=== PATIENT | male | born 1970 | race Caucasian/White ===

== ENCOUNTER 2016-02-23 20:59 | Emergency (ER) ==
[2016-02-23] MEDS ORDERED: DILAUDID 1 MG/ML SYRINGE IVP STA (21:04)
[2016-02-23] MEDS ORDERED: SODIUM CHLORIDE 1,000 ML IV STA (21:04)
[2016-02-23] MEDS ORDERED: PHENERGAN 25 MG/ML VIAL 25 MG in SODIUM CHLORIDE 50 ML IV STA (21:04)
[2016-02-23 21:12] VITALS: BP 121/84; TEMP 97.4; BMI 26.9
[2016-02-23 21:22] LABS: BASOPHILS % (AUTO) 1.3 % (0.0-3.0); EOSINOPHILS # (AUTO) 0.1 K/ul (0.0-0.7); EOSINOPHILS % (AUTO) 7.2 % (0.0-7.0); IMMATURE GRANULOCYTE % (AUTO) 0.7 % (0.0-5.0); LYMPHOCYTES # (AUTO) 0.5 K/uL (0.60-3.4); LYMPHOCYTES % (AUTO) 33.3 (10.0-50.0); MEAN CORPUSCULAR HEMOGLOBIN 28.5 pg (27.0-31.0); MEAN CORPUSCULAR HGB CONC 32.4 (31.8-35.4); MEAN CORPUSCULAR VOLUME 88.1 fl (80.0-94.0); MONOCYTES # (AUTO) 0.3 K/uL (0.4-2.0); MONOCYTES % (AUTO) 18.3 (0-10); NEUTROPHILS # (AUTO) 0.6 K/ul (2.0-6.9); NEUTROPHILS % (AUTO) 39.2; PLATELET COUNT 285 10^3/uL (140-440); RED BLOOD COUNT 3.86 10^6/ul (4.70-6.10)
[2016-02-23 21:23] LABS: WHITE BLOOD COUNT 1.53 K/ul (4.2-10.2)
[2016-02-23] MEDS ORDERED: PHENERGAN 25 MG/ML VIAL ONE (21:23)
[2016-02-23 21:27] LABS: ADD URINE MICROSCOPIC NO; BILIRUBIN,URINE Negative (NEGATIVE); KETONES,URINE Negative (NEGATIVE); LEUKOCYTE ESTERASE ,URINE Negative (NEGATIVE); NITRITE,URINE Negative (NEGATIVE); PROTEIN,URINE Negative (NEGATIVE); URINE, BLOOD Negative (NEGATIVE)
[2016-02-23 21:44] LABS: ALANINE AMINOTRANSFERASE 43 U/L (12-78); ALBUMIN 3.6 g/dL (3.4-5.0); ALBUMIN/GLOBULIN RATIO 1.03; ALKALINE PHOSPHATASE 140 U/L (50-136); AMYLASE 87 U/L (25-115); ANION GAP 14.1; ASPARTATE AMINO TRANSFERASE 32 U/L (15-37); BILIRUBIN,TOTAL 0.29 mg/dL (0.00-1.20); BLOOD UREA NITROGEN 12 mg/dL (7-18); BUN/CREATININE RATIO 15.78; CALCIUM 9.3 mg/dL (8.2-10.2); CARBON DIOXIDE 29 mmol/L (21-32); CHLORIDE 99 mmol/L (98-107); CREATINE KINASE 111 U/L; CREATININE 0.76 mg/dL (0.60-1.10); GLUCOSE 256 mg/dL (70-100); LIPASE 81 U/L (8-78); POTASSIUM 4.1 mmol/L (3.5-5.1); SODIUM 138 mmol/L (136-145); TOTAL PROTEIN 7.1 g/dL (6.4-8.2)
--- NOTE | 2016-02-23 21:49 | DI ---
EXAM: Abdomen one-view HISTORY: Post chemotherapy vomiting FINDINGS: Normal bowel gas pattern. No pathologic calcifications. No large free intraperitoneal g as. No abundance of retained colonic stool. Skeleton appears normal. Retrievable inferior vena cava filter in place. IMPRESSION: Negative exam.
--- NOTE | 2016-02-23 22:48 | ED.PDOC ---
General ED Provider: Dr. CAMILA GUILLERMO-ER Chief Complaint: Nausea/Vomiting Stated Complaint: im throwing up Time Seen by Physician: 21:05 Mode of Arrival: Walk-In Information Source: Patient, Family Exam Limitations: No limitations Primary Care Provider: JACK POSADA Nursing and Triage Documentation Reviewed and Agree: Yes GI Complaint Exam - Vomiting/Diarrhea Complaint/Exam Onset/Duration: 24hrs Symptoms Are: Still present Episodes of Vomiting over last 24 Hours: 6 Episodes of Diarrhea Over Last 24 Hours: 5 Initial Severity: Mild Current Severity: Mild Character of Vomiting: Reports: Non-bilious Character of Diarrhea: Reports: Watery Aggravating: Reports: None Alleviating: Reports: None Associated Signs and Symptoms: Denies: Dizziness, Light-headedness, Melena, Hematemesis, Fever, Abdominal pain, Cramping Non-GI Risk Factors: Reports: None Surgical Obstruction Risk Factors: Reports: None Abdominal Findings: Present: None Kussmaul Respirations Present: No Differential Diagnoses: Dehydration Review of Systems - Review Of Systems Constitutional: Reports: No symptoms Eyes: Reports: No symptoms Ears, Nose, Mouth, Throat: Reports: No symptoms Respiratory: Reports: No symptoms Cardiac: Reports: No symptoms GI: Reports: Diarrhea, Nausea, Vomiting : Reports: No symptoms Musculoskeletal: Reports: No symptoms Skin: Reports: No symptoms Neurological: Reports: No symptoms Endocrine: Reports: No symptoms Hematologic/Lymphatic: Reports: No symptoms All Other Systems: Reviewed and Negative Past Medical History - Past Medical History Previously Healthy: No Endocrine: Reports: DM 2 Cardiovascular: Reports: None Respiratory: Reports: None Hematological: Reports: None Gastrointestinal: Reports: GERD Genitourinary: Reports: None Neuro/Psych: Reports: None Musculoskeletal: Reports: Other (LEFT SHOULDER PAIN WITH MOTION) Cancer: Reports: None - Surgical History General Surgical History: Reports: Appendectomy - Family History Family History: Reports: None - Social History Smoking Status: Current some day smoker, Light tobacco smoker Hx Substance Use: No Alcohol Screening: None Lives: With family Physical Exam - Physical Exam Appearance: Well-appearing, No pain distress, Well-nourished Eyes: WILLIAM, EOMI, Conjunctiva clear ENT: Ears normal, Nose normal, Oropharynx normal Neck: Supple Respiratory: Airway patent, Breath sounds clear, Breath sounds equal, Respirations nonlabored Cardiovascular: RRR, Pulses normal, No rub, No murmur GI/: Soft, Nontender, No masses Musculoskeletal: Normal strength, ROM intact, No edema, No calf tenderness Skin: Warm, Dry, Normal color Neurological: Sensation intact Psychiatric: Affect appropriate Interpretation - Radiology Interpretation Radiology Interpretation By: Radiologist Radiology Results: Negative - EKG Interpretation Time of EKG #1: 22:47 Rate: Normal Rhythm: Sinus Ectopy: None Mobile: NL ST Segment: Normal Re-Evaluation - Re-Evaluation Time of Re-Evaluation: 22:47 Status: Improved Vital Signs Stable: Yes Pain Level: 1 Appearance: NAD Lungs: Clear Skin: Warm and Dry Neuro: Alert and Oriented X3 CV: RRR Critical Care Note - Critical Care Note Total Time (mins): 0 Course - Course Hematology/Chemistry: 02/23/16 21:13 02/23/16 21:13 Orders, Labs, Meds: Lab Review 02/23/16 21:13 WBC 1.53 L* RBC 3.86 L Hgb 11.0 L Hct 34.0 L MCV 88.1 MCH 28.5 MCHC 32.4 RDW Coeff of Melanie 16.7 H Plt Count 285 Immature Gran % (Auto) 0.7 Neut % (Auto) 39.2 Lymph % (Auto) 33.3 [place] % (Auto) 18.3 H Eos % (Auto) 7.2 H Baso % (Auto) 1.3 Immature Gran # (Auto) 0.0 Neut # 0.6 L Lymph # 0.5 L [place] # 0.3 L Eos # 0.1 Baso # 0.0 Sodium 138 Potassium 4.1 Chloride 99 Carbon Dioxide 29 Anion Gap 14.1 BUN 12 Creatinine 0.76 Estimated GFR (MDRD) 111.00 BUN/Creatinine Ratio 15.78 Glucose 256 H Calcium 9.3 Total Bilirubin 0.29 AST 32 ALT 43 Alkaline Phosphatase 140 H Total Creatine Kinase 111 Troponin I < 0.0100 Total Protein 7.1 Albumin 3.6 Globulin 3.5 Albumin/Globulin Ratio 1.03 Amylase 87 Lipase 81 H Urine Color Yellow Urine Clarity Clear Urine pH 7.0 Ur Specific [place] 1.020 Urine Protein Negative Urine Glucose (UA) 2+ Urine Ketones Negative Urine Blood Negative Urine Nitrite Negative Urine Bilirubin Negative Urine Urobilinogen 1.0 Ur Leukocyte Esterase Negative Orders Category Date Time Status EKG-(ED ONLY) Stat CARDIO 02/23/16 21:05 Ordered IV [ED IV/MEDIPORT/POWERPORT] .ONCE EMERGENCY 02/23/16 21:04 Active AMYLASE Stat LAB 02/23/16 21:13 Completed CBC W/ AUTO DIFF Stat LAB 02/23/16 21:13 Completed COMPREHENSIVE METABOLIC PANEL Stat LAB 02/23/16 21:13 Completed CREATINE KINASE Stat LAB 02/23/16 21:13 Completed LIPASE Stat LAB 02/23/16 21:13 Completed TROPONIN I Stat LAB 02/23/16 21:13 Completed URINALYSIS C & S IF INDICATED Stat LAB 02/23/16 21:13 Completed 0.9 % Sodium Chloride [Saline Flush] MEDS 02/23/16 21:04 Ordered 1 syr IVF PRN PRN Hydromorphone HCl [Dilaudid 1 mg/ml Syringe] MEDS 02/23/16 21:04 Discontinued 1 mg IVP ONCE STA Promethazine HCl [Phenergan 25 mg/ml Vial] MEDS 02/23/16 21:23 Discontinued 25 mg .ROUTE .STK-MED ONE Promethazine HCl [Phenergan 25 mg/ml Vial] 25 mg MEDS 02/23/16 21:04 Discontinued 0.9 % Sodium Chloride [Sodium Chloride] 50 ml IV ONCE Sodium Chloride 0.9% [Sodium Chloride] 1,000 ml MEDS 02/23/16 21:04 Discontinued IV BOLUS ABDOMEN 1 VIEW Stat RADS 02/23/16 21:03 Completed Medications Generic Name Dose Route Start Last Admin Trade Name Freq PRN Reason Stop Dose Admin Sodium Chloride 1 syr 02/23/16 21:04 Saline Flush IVF PRN PRN To flush IV Discontinued Medications Generic Name Dose Route Start Last Admin Trade Name Freq PRN Reason Stop Dose Admin Hydromorphone HCl 1 mg 02/23/16 21:04 02/23/16 21:36 Dilaudid 1 Mg/Ml Syringe IVP 02/23/16 21:05 1 mg ONCE STA Administration Promethazine HCl 25 mg/ Sodium 51 mls @ 75 mls/hr 02/23/16 21:04 02/23/16 21: 36 Chloride IV 02/23/16 21:44 75 mls/hr ONCE STA Administration Sodium Chloride 1,000 mls @ 1,000 mls/hr 02/23/16 21:04 02/23/16 21:42 Sodium Chloride IV 02/23/16 22:03 1,000 mls/hr BOLUS STA Administration Vital Signs: Temp Pulse Resp BP Pulse Ox 02/23/16 21:02 97.4 F L 100 H 16 121/84 98 Departure - Departure Time of Disposition: 22:47 Disposition: HOME SELF-CARE Discharge Problem: Vomiting Instructions: Acute Nausea and Vomiting (ED) Condition: Good Pt referred to PMD for follow-up: Yes Additional Instructions: f/u with pcp and oncology Allergies/Adverse Reactions: Allergies codeine Allergy (Verified 02/23/16 21:00) sulfamethoxazole [From Bactrim] Allergy (Verified 02/23/16 21:00) trimethoprim [From Bactrim] Allergy (Verified 02/23/16 21:00) aspirin Adverse Reaction (Verified 02/23/16 21:00) states can take a baby aspirin, but a regular one makes him nauseated. tramadol HCl [From Ultram] Adverse Reaction (Verified 02/23/16 21:00) Home Medications: Ambulatory Orders Lisinopril [Zestril] 10 mg PO DAILY 06/08/13 Pioglitazone HCl [Actos] 45 mg PO DAILY 06/08/13 Lansoprazole [Prevacid] 30 mg PO DAILY 06/27/14 Glyburide 5 mg PO BID 09/26/15 Hydrocodone/Acetaminophen [[place] 7.5-325 Tablet] 7.5 - 325 mg PO QID PRN Insulin Glargine,Hum.rec.anlog [Lantus Solostar] 30 unit SQ BEDTIME 09/26/15 Nicotine [Nicoderm Cq] 1 each TD DAILY 09/26/15 Enoxaparin Sodium [Lovenox] 80 mg SQ BID 01/28/16 Pantoprazole Sodium [Protonix] 40 mg PO BIDAC #60 tablet. 02/10/16 Disposition Discussed With: Patient, Family
== END 2016-02-23 22:55 | disposition home or self-care (01) ==
LOC: ED 20:59
DX: R11.2 Nausea with vomiting, unspecified (principal); R19.7 Diarrhea, unspecified; E11.9 Type 2 diabetes mellitus without complications; F17.210 Nicotine dependence, cigarettes, uncomplicated; Z79.899 Other long term (current) drug therapy
CPT/HCPCS: 36415; 80053; 81001; 82150; 82550; 83690; 84484; 85025; 93005; 93010; 96361; 96365; 96375; 99283

== ENCOUNTER 2016-10-15 23:01 | Emergency (ER) | payer OTHER ==
[2016-10-15 23:11] VITALS: BP 132/85; TEMP 98.3; BMI 29.3
[2016-10-15 23:31] LABS: BASOPHILS % (AUTO) 0.7 % (0.0-3.0); EOSINOPHILS % (AUTO) 1.3 % (0.0-7.0); HEMATOCRIT 38.1 % (42.0-52.0); HEMOGLOBIN 13.9 g/dl (14.0-18.0); IMMATURE GRANULOCYTE % (AUTO) 0.3 % (0.0-5.0); LYMPHOCYTES # (AUTO) 0.9 K/uL (0.60-3.4); LYMPHOCYTES % (AUTO) 29.1 (10.0-50.0); MEAN CORPUSCULAR HEMOGLOBIN 30.2 pg (27.0-31.0); MEAN CORPUSCULAR HGB CONC 36.5 (31.8-35.4); MEAN CORPUSCULAR VOLUME 82.6 fl (80.0-94.0); MONOCYTES # (AUTO) 0.4 K/uL (0.4-2.0); NEUTROPHILS # (AUTO) 1.7 K/ul (2.0-6.9); NEUTROPHILS % (AUTO) 55.6; PLATELET COUNT 246 10^3/uL (140-440); RED BLOOD COUNT 4.61 10^6/ul (4.70-6.10); WHITE BLOOD COUNT 2.99 K/ul (4.2-10.2)
[2016-10-15 23:50] LABS: ALBUMIN 4.2 g/dL (3.4-5.0); ALBUMIN/GLOBULIN RATIO 1.35; ANION GAP 15.1; BILIRUBIN,TOTAL 0.42 mg/dL (0.00-1.20); BUN/CREATININE RATIO 19.19; CALCIUM 9.8 mg/dL (8.2-10.2); CREATININE 0.99 mg/dL (0.60-1.10); POTASSIUM 4.1 mmol/L (3.5-5.1); TOTAL PROTEIN 7.3 g/dL (6.4-8.2)
--- NOTE | 2016-10-16 | ED.PDOC ---
General ED Provider: Dr. JAMIL BELLE Chief Complaint: Non-specific Complaint Stated Complaint: Been feeling weak, cramps all over the body. feels dehydrated. patient is been diagnosed with lung cancer and on chemo, last one in august. Time Seen by Physician: 23:58 Mode of Arrival: Walk-In Information Source: Patient, Family Primary Care Provider: JACK POSADA Nursing and Triage Documentation Reviewed and Agree: Yes Neurological Complaint Exam - Weakness Complaint/Exam Onset: Gradual Symptoms Are: Still present Timing: Constant Episodes Lasting: Hours Initial Severity: Moderate Current Severity: Mild Character: Reports: Weak Aggravating: Reports: None Alleviating: Reports: Rest Associated Signs and Symptoms: Reports: Decreased oral intake, Change in diet. Denies: Nausea, Vomiting, Diaphoresis, Tinnitus, Chest pain, Short of air, Palpitations, Unsteady gait, GI blood loss, Visual changes, Change in medication , OTC meds, Loss of balance Related History: Similar episode Cardiac Risk Factors: Reports: None CVA Risk Factors: Reports: None Related Surgical History: Reports: None JVD Present: No Carotid Bruit Present: No Rectal Heme Positive: No Nystagmus Present: No Gag Reflex Present: Yes Meningeal Signs Positive: No Focal Weakness: Present: None Focal Sensory Loss: Present: None Gait: Normal [id number]: Normal Findings Romberg Test Positive: No Differential Diagnoses: Hypovolemia, Metabolic abnormalities Review of Systems - Review Of Systems Constitutional: Reports: No symptoms Eyes: Reports: No symptoms Ears, Nose, Mouth, Throat: Reports: No symptoms Respiratory: Reports: No symptoms Cardiac: Reports: No symptoms GI: Reports: No symptoms : Reports: No symptoms Musculoskeletal: Reports: No symptoms Skin: Reports: No symptoms Neurological: Reports: No symptoms Endocrine: Reports: No symptoms Hematologic/Lymphatic: Reports: No symptoms All Other Systems: Reviewed and Negative Past Medical History - Past Medical History Previously Healthy: No Endocrine: Reports: DM 2 Cardiovascular: Reports: None Respiratory: Reports: None Hematological: Reports: None Gastrointestinal: Reports: GERD Genitourinary: Reports: None Neuro/Psych: Reports: None Musculoskeletal: Reports: Other (LEFT SHOULDER PAIN WITH MOTION) Cancer: Reports: None - Surgical History General Surgical History: Reports: Appendectomy - Family History Family History: Reports: None - Social History Smoking Status: Former smoker Hx Substance Use: Yes (marijuana) Alcohol Screening: Occasionally - Immunizations Tetanus Shot up to Date: Yes Physical Exam - Physical Exam Appearance: Well-appearing, No pain distress, Well-nourished Eyes: WILLIAM, EOMI, Conjunctiva clear ENT: Ears normal, Nose normal, Oropharynx normal Respiratory: Airway patent, Breath sounds clear, Breath sounds equal, Respirations nonlabored Cardiovascular: RRR, Pulses normal, No rub, No murmur GI/: Soft, Nontender, No masses, Bowel sounds normal, No Organomegaly Musculoskeletal: Normal strength, ROM intact, No edema, No calf tenderness Skin: Warm, Dry, Normal color Neurological: Sensation intact, Motor intact, Reflexes intact, Cranial nerves intact, Alert, Oriented Psychiatric: Affect appropriate, Mood appropriate Critical Care Note - Critical Care Note Total Time (mins): 0 Course - Course Hematology/Chemistry: 10/15/16 23:30 10/15/16 23:30 Orders, Labs, Meds: Lab Review 10/15/16 23:30 WBC 2.99 L RBC 4.61 L Hgb 13.9 L Hct 38.1 L MCV 82.6 MCH 30.2 MCHC 36.5 H RDW Coeff of Melanie 14.1 Plt Count 246 Immature Gran % (Auto) 0.3 Neut % (Auto) 55.6 Lymph % (Auto) 29.1 [place] % (Auto) 13.0 H Eos % (Auto) 1.3 Baso % (Auto) 0.7 Immature Gran # (Auto) 0.0 Neut # 1.7 L Lymph # 0.9 [place] # 0.4 Eos # 0.0 Baso # 0.0 Sodium 136 Potassium 4.1 Chloride 100 Carbon Dioxide 25 Anion Gap 15.1 BUN 19 H Creatinine 0.99 Estimated GFR (MDRD) 82.00 BUN/Creatinine Ratio 19.19 Glucose 264 H Calcium 9.8 Total Bilirubin 0.42 AST 28 ALT 33 Alkaline Phosphatase 82 Total Protein 7.3 Albumin 4.2 Globulin 3.1 Albumin/Globulin Ratio 1.35 Orders Category Date Time Status CBC W/ AUTO DIFF Stat LAB 10/15/16 23:30 Completed CMP [COMPREHENSIVE METABOLIC PANEL] Stat LAB 10/15/16 23:30 Completed Insulin NPL/Insulin Lispro [Humalog Mix 75-25] MEDS 10/16/16 00:04 Stat 6 unit SUBCUT ONCE STA Morphine Sulfate [Morphine 2 mg/ml Syringe] MEDS 10/16/16 00:04 Stat 2 mg IM ONCE STA Ondansetron HCl/Pf [Zofran 4 mg/2 ml] MEDS 10/16/16 00:04 Stat 4 mg IM ONCE STA Vital Signs: Temp Pulse Resp BP Pulse Ox 10/15/16 23:04 98.3 F 98 H 20 132/85 97 Departure - Departure Time of Disposition: 00:06 Disposition: HOME SELF-CARE Discharge Problem: Hyperglycemia Instructions: Diabetic Hyperglycemia (ED) Condition: Good Pt referred to PMD for follow-up: Yes Additional Instructions: Increase hydration keep checking blood sugars Allergies/Adverse Reactions: Allergies codeine Allergy (Verified 10/15/16 23:11) sulfamethoxazole [From Bactrim] Allergy (Verified 10/15/16 23:11) trimethoprim [From Bactrim] Allergy (Verified 10/15/16 23:11) aspirin Adverse Reaction (Verified 10/15/16 23:11) states can take a baby aspirin, but a regular one makes him nauseated. tramadol HCl [From Ultram] Adverse Reaction (Verified 10/15/16 23:11) Home Medications: Ambulatory Orders Lisinopril [Zestril] 10 mg PO DAILY 06/08/13 Pioglitazone HCl [Actos] 45 mg PO DAILY 06/08/13 Lansoprazole [Prevacid] 30 mg PO DAILY 06/27/14 Glyburide 10 mg PO DAILY 09/26/15 Insulin Glargine,Hum.rec.anlog [Lantus Solostar] 30 unit SQ BEDTIME PRN Enoxaparin Sodium [Lovenox] 80 mg SQ BID 01/28/16 Potassium 99 mg PO DAILY 10/15/16 Disposition Discussed With: Patient, Family
[2016-10-16] MEDS ORDERED: ZOFRAN 4 MG/2 ML IM STA (00:04)
[2016-10-16] MEDS ORDERED: MORPHINE 2 MG/ML SYRINGE IM STA (00:04)
[2016-10-16] MEDS ORDERED: HUMALOG MIX 75-25 SUBCUT STA (00:04)
[2016-10-16] MEDS ORDERED: HUMALOG SUBCUT STA (00:08)
== END 2016-10-16 00:33 | disposition home or self-care (01) ==
LOC: ED 23:01
DX: E11.65 Type 2 diabetes mellitus with hyperglycemia (principal); R53.1 Weakness; R25.2 Cramp and spasm; C34.90 Malignant neoplasm of unspecified part of unspecified bronchus or lung; Z79.899 Other long term (current) drug therapy
CPT/HCPCS: 36415; 80053; 85025; 96372; 99283

== ENCOUNTER 2016-12-26 20:56 | Emergency (ER) ==
[2016-12-26 20:56] VITALS: BMI 29.7
[2016-12-26 21:03] VITALS: BP 121/83; TEMP 97.3
[2016-12-26] MEDS ORDERED: ZOFRAN 4 MG/2 ML IM STA ×2 (21:09)
[2016-12-26] MEDS ORDERED: MORPHINE 10 MG/ML SYRINGE IM STA (21:11)
--- NOTE | 2016-12-26 21:13 | ED.PDOC ---
General ED Provider: Dr. ULISSES CALDERON Chief Complaint: Headache Stated Complaint: headache Time Seen by Physician: 21:00 Mode of Arrival: Walk-In Information Source: Patient Exam Limitations: No limitations Primary Care Provider: JACK POSADA Nursing and Triage Documentation Reviewed and Agree: Yes (brain mets seen with nursing staff ) Neurological Complaint Exam - Headache Complaint/Exam Onset: Gradual Duration: today Symptoms Are: Still present Timing: Constant Episodes Lasting: Hours Worst Headache Ever: No Initial Severity: Moderate Current Severity: Moderate Location: Diffuse Character: Reports: Throbbing Aggravating: Reports: None Alleviating: Reports: None Associated Signs and Symptoms: Reports: Neck pain Related History: Reports: Similar episode Related Surgical History: Reports: None SAH Risk Factors: Reports: None Meningitis Risk Factors: Reports: None SDH Risk Factors: Reports: Male Temporal Arteritis Risk Factors: Reports: Normal Head CT Within Last 12 Months: No (reports of mets to brain evaluated ) Fundoscopic Exam: Present: Normal Findings Papilledema Present: No Temporal Artery Tenderness: Present: None Sinus Tenderness: Present: None TMJ Tenderness: Present: None Glascow Coma Scale (see protocol): 15 Meningeal Signs Positive: No Pain on Passive Flexion-Positive Kernig's: No ROM Limited In: No Limitiations Focal Weakness: Present: None Focal Sensory Loss: Present: None Gait: Normal Nystagmus Present: No Gag Reflex Present: Yes Babinski Sign: Negative Right, Negative Left Review of Systems - Review Of Systems Constitutional: Reports: No symptoms Eyes: Reports: No symptoms Ears, Nose, Mouth, Throat: Reports: No symptoms Respiratory: Reports: No symptoms Cardiac: Reports: No symptoms GI: Reports: No symptoms : Reports: No symptoms Musculoskeletal: Reports: No symptoms Skin: Reports: No symptoms Neurological: Reports: Headache Endocrine: Reports: No symptoms Hematologic/Lymphatic: Reports: No symptoms All Other Systems: Reviewed and Negative Past Medical History - Past Medical History Previously Healthy: No Endocrine: Reports: DM 2 Cardiovascular: Reports: None Respiratory: Reports: None Hematological: Reports: None Gastrointestinal: Reports: GERD Genitourinary: Reports: None Neuro/Psych: Reports: None Musculoskeletal: Reports: Other (LEFT SHOULDER PAIN WITH MOTION) 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 ) - Surgical History General Surgical History: Reports: Appendectomy - Family History Family History: Reports: None - Social History Smoking Status: Former smoker Hx Substance Use: No (marijuana) Alcohol Screening: Occasionally - Immunizations Tetanus Shot up to Date: Yes Physical Exam - Physical Exam Appearance: Well-appearing, No pain distress, Well-nourished Eyes: WILLIAM, EOMI, Conjunctiva clear ENT: Ears normal, Nose normal, Oropharynx normal Respiratory: Airway patent, Breath sounds clear, Breath sounds equal, Respirations nonlabored Cardiovascular: RRR, Pulses normal, No rub, No murmur GI/: Soft, Nontender, No masses, Bowel sounds normal, No Organomegaly Musculoskeletal: Normal strength, ROM intact, No edema, No calf tenderness Skin: Warm, Dry, Normal color Neurological: Sensation intact, Motor intact, Reflexes intact, Cranial nerves intact, Alert, Oriented Psychiatric: Affect appropriate, Mood appropriate Critical Care Note - Critical Care Note Total Time (mins): 0 Course - Course Orders, Labs, Meds: Orders Category Date Time Status Ondansetron HCl/Pf [Zofran 4 mg/2 ml] MEDS 12/26/16 21:09 Stat 4 mg IM ONCE STA Ondansetron HCl/Pf [Zofran 4 mg/2 ml] MEDS 12/26/16 21:09 Stat 4 mg IM ONCE STA Medications Generic Name Dose Route Start Last Admin Trade Name Freq PRN Reason Stop Dose Admin Ondansetron HCl 4 mg 12/26/16 21:09 Zofran 4 Mg/2 Ml IM 12/26/16 21:10 ONCE STA Ondansetron HCl 4 mg 12/26/16 21:09 Zofran 4 Mg/2 Ml IM 12/26/16 21:10 ONCE STA Vital Signs: Temp Pulse Resp BP Pulse Ox 12/26/16 20:57 97.3 F L 112 H 20 121/83 96 Departure - Departure Time of Disposition: 21:13 Disposition: HOME SELF-CARE Discharge Problem: Headache Instructions: Acute Headache (ED) Condition: Good Pt referred to PMD for follow-up: Yes Additional Instructions: Please call your Family Physician as soon as possible to schedule a follow-up appointment. Allergies/Adverse Reactions: Allergies codeine Allergy (Verified 12/22/16 18:37) sulfamethoxazole [From Bactrim] Allergy (Verified 12/22/16 18:37) trimethoprim [From Bactrim] Allergy (Verified 12/22/16 18:37) aspirin Adverse Reaction (Verified 12/22/16 18:37) states can take a baby aspirin, but a regular one makes him nauseated. tramadol HCl [From [facility]] Adverse Reaction (Verified 12/22/16 18:37) Home Medications: Ambulatory Orders Lisinopril [Zestril] 10 mg PO DAILY 06/08/13 Lansoprazole [Prevacid] 30 mg PO DAILY 06/27/14 Glyburide 10 mg PO DAILY 09/26/15 Insulin Glargine,Hum.rec.anlog [Lantus Solostar] 30 unit SQ BEDTIME PRN Enoxaparin Sodium [Lovenox] 80 mg SQ BID 01/28/16 Potassium 99 mg PO DAILY 10/15/16 Dexamethasone 4 mg PO Q12H #70 tablet 12/18/16 Hydrocodone/Acetaminophen [[place] 10-325 Tablet] 1 each PO Q4HR PRN 12/18/16 Diazepam [Valium] 5 mg PO PRN PRN 12/22/16 Diphenoxylate HCl/Atropine [Lomotil 2.5-0.025 mg Tablet] 1 each PO TID PRN #20 tablet 12/22/16 Folic Acid 1 mg PO DAILY 12/22/16 Lorazepam [Ativan] 1 mg PO TID PRN 12/22/16
== END 2016-12-26 21:26 | disposition home or self-care (01) ==
LOC: ED 20:56
DX: R51 Headache (principal); M54.2 Cervicalgia; C34.90 Malignant neoplasm of unspecified part of unspecified bronchus or lung; C79.31 Secondary malignant neoplasm of brain
CPT/HCPCS: 96372; 99282

== ENCOUNTER 2017-01-19 18:10 | Emergency (ER) ==
[2017-01-19 18:14] VITALS: BP 157/111; TEMP 98.8; BMI 29.5
[2017-01-19] MEDS ORDERED: DILAUDID 2 MG/ML SYRINGE IM STA (18:26)
[2017-01-19] MEDS ORDERED: PHENERGAN 25 MG/ML VIAL IM STA (18:26)
--- NOTE | 2017-01-19 18:30 | ED.PDOC ---
General ED Provider: Dr. CAMILA GUILLERMO-ER Chief Complaint: Headache Stated Complaint: im out of my pain meds--i have brain cancer--i have headache Time Seen by Physician: 18:15 Mode of Arrival: Walk-In Information Source: Patient Exam Limitations: No limitations Primary Care Provider: JACK YUEN Nursing and Triage Documentation Reviewed and Agree: Yes Neurological Complaint Exam - Headache Complaint/Exam Onset: Gradual Duration: several days Symptoms Are: Still present Timing: Constant Episodes Lasting: Hours Worst Headache Ever: No Initial Severity: Mild Current Severity: Moderate Location: Diffuse Character: Reports: Dull, Throbbing, Pressure, Migraine Aggravating: Reports: Bright lights Associated Signs and Symptoms: Denies: Dizziness, Seizure, Nausea, Vomiting, Sinus pressure, Fever, Neck pain, Neck stiffness, Decreased LOC, Visual changes Related History: Reports: Similar episode Meningitis Risk Factors: Reports: None SDH Risk Factors: Reports: Male Temporal Arteritis Risk Factors: Reports: Normal Head CT Within Last 12 Months: Yes Fundoscopic Exam: Present: Normal Findings Papilledema Present: No Temporal Artery Tenderness: Present: None Sinus Tenderness: Present: None TMJ Tenderness: Present: None Glascow Coma Scale (see protocol): 15 Meningeal Signs Positive: No Pain on Passive Flexion-Positive Kernig's: No ROM Limited In: No Limitiations Focal Weakness: Present: None Focal Sensory Loss: Present: None Gait: Normal Nystagmus Present: No Gag Reflex Present: Yes [id number]: Normal Findings Romberg Test Positive: No Babinski Sign: Negative Right Heel to Toe Normal: No Differential Diagnoses: Other Review of Systems - Review Of Systems Constitutional: Reports: No symptoms Eyes: Reports: No symptoms Ears, Nose, Mouth, Throat: Reports: No symptoms Respiratory: Reports: No symptoms Cardiac: Reports: No symptoms GI: Reports: No symptoms : Reports: No symptoms Musculoskeletal: Reports: No symptoms Skin: Reports: No symptoms Neurological: Reports: Headache Endocrine: Reports: No symptoms Hematologic/Lymphatic: Reports: No symptoms All Other Systems: Reviewed and Negative Past Medical History - Past Medical History Previously Healthy: No Endocrine: Reports: DM 2 Cardiovascular: Reports: None Respiratory: Reports: None Hematological: Reports: None Gastrointestinal: Reports: GERD Genitourinary: Reports: None Neuro/Psych: Reports: None Musculoskeletal: Reports: Other (LEFT SHOULDER PAIN WITH MOTION) 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 ) - Surgical History General Surgical History: Reports: Appendectomy - Family History Family History: Reports: None - Social History Smoking Status: Former smoker Hx Substance Use: No (marijuana) Alcohol Screening: Occasionally Lives: With family - Immunizations Tetanus Shot up to Date: No Physical Exam - Physical Exam Appearance: Well-appearing, No pain distress, Well-nourished Pain Distress: Moderate Eyes: WILLIAM, EOMI, Conjunctiva clear ENT: Ears normal Neck: Supple Respiratory: Airway patent Cardiovascular: RRR, Pulses normal, No rub, No murmur GI/: Soft, Nontender, No masses, Bowel sounds normal, No Organomegaly Musculoskeletal: Normal strength, ROM intact, No edema, No calf tenderness Skin: Warm, Dry, Normal color Neurological: Sensation intact, Motor intact, Reflexes intact, Cranial nerves intact, Alert, Oriented Psychiatric: Affect appropriate, Mood appropriate Physician Notification - Case Discussed Physician Notified: dr paulino Time of Notification: 18:32 Critical Care Note - Critical Care Note Total Time (mins): 0 Course - Course Orders, Labs, Meds: Orders Category Date Time Status Hydromorphone HCl/Pf [Dilaudid 2 mg/ml Syringe] MEDS 01/19/17 18:26 Stat 2 mg IM ONCE STA Promethazine HCl [Phenergan 25 mg/ml Vial] MEDS 01/19/17 18:26 Stat 25 mg IM ONCE STA CT HEAD W/O CONTRAST Stat RADS 01/19/17 18:27 Ordered Medications Discontinued Medications Generic Name Dose Route Start Last Admin Trade Name Freq PRN Reason Stop Dose Admin Hydromorphone HCl 2 mg 01/19/17 18:26 Dilaudid 2 Mg/Ml Syringe IM 01/19/17 18:27 ONCE STA Promethazine HCl 25 mg 01/19/17 18:26 Phenergan 25 Mg/Ml Vial IM 01/19/17 18:27 ONCE STA Vital Signs: Temp Pulse Resp BP Pulse Ox 01/19/17 18:11 98.8 F 110 H 20 157/111 H 97 Departure - Departure Time of Disposition: 18:30 Disposition: HOME SELF-CARE Discharge Problem: Headache Instructions: General Headache (ED) Condition: Fair Pt referred to PMD for follow-up: Yes Additional Instructions: percocet 10mg q 4hrs prn pain#10--keep appt wtih dr yuen this week Allergies/Adverse Reactions: Allergies codeine Allergy (Verified 01/19/17 18:15) sulfamethoxazole [From Bactrim] Allergy (Verified 01/19/17 18:15) trimethoprim [From Bactrim] Allergy (Verified 01/19/17 18:15) aspirin Adverse Reaction (Verified 01/19/17 18:15) states can take a baby aspirin, but a regular one makes him nauseated. tramadol HCl [From Ultram] Adverse Reaction (Verified 01/19/17 18:15) Home Medications: Ambulatory Orders Lisinopril [Zestril] 10 mg PO DAILY 06/08/13 Lansoprazole [Prevacid] 30 mg PO DAILY 06/27/14 Glyburide 10 mg PO DAILY 09/26/15 Insulin Glargine,Hum.rec.anlog [Lantus Solostar] 30 unit SQ BEDTIME PRN Enoxaparin Sodium [Lovenox] 80 mg SQ BID 01/28/16 Potassium 99 mg PO DAILY 10/15/16 Dexamethasone 4 mg PO Q12H #70 tablet 12/18/16 Diazepam [Valium] 10 mg PO PRN PRN 12/22/16 Folic Acid 1 mg PO DAILY 12/22/16 Levothyroxine Sodium 50 mcg PO DAILY 01/19/17 Oxycodone-Acetaminophen 10-325 [Percocet 10-325] 10 mg PO DAILY 01/19/17 Disposition Discussed With: Patient, Family
--- NOTE | 2017-01-19 18:51 | CT ---
EXAM: CT head without contrast 01/19/2017. Sagittal and coronal reformatted images obtained HISTORY: Headache COMPARISON: 12/18/2016 FINDINGS: There is no evidence of intracranial hemorrhage. The midline is maintained. There is no h ydrocephalus. Low density within the left parietal lobe has decreased minimally since the prior study. This likely represents persistent vasogenic edema. Correlate clinically for history of metastasis. There is persistent low density involving the right temporal lobe and right frontal lobe. These area s also appear minimally improved. No cerebellar tonsillar ectopia. Evaluation of the calvarium shows no fracture. The mastoid air alberto ls are normally pneumatized. IMPRESSION: 1. No intracranial hemorrhage. 2. Multifocal low density involving the right frontal, right temporal and left parietal lobes. Thes e areas maintain a similar distribution as compared to the prior study and appear minimally improved.
[2017-01-19] MEDS ORDERED: MORPHINE 2 MG/ML SYRINGE IM STA (19:31)
== END 2017-01-19 20:00 | disposition home or self-care (01) ==
LOC: ED 18:10
DX: R51 Headache (principal); C34.90 Malignant neoplasm of unspecified part of unspecified bronchus or lung; C79.31 Secondary malignant neoplasm of brain; Z79.899 Other long term (current) drug therapy
CPT/HCPCS: 96372; 99283

== ENCOUNTER 2017-02-02 18:06 | Emergency (ER) ==
[2017-02-02 18:09] VITALS: BP 104/75; TEMP 98.5; BMI 27.3
[2017-02-02] MEDS ORDERED: DILAUDID 2 MG/ML SYRINGE IM STA (19:06)
[2017-02-02] MEDS ORDERED: PHENERGAN 25 MG/ML VIAL IM STA (19:06)
--- NOTE | 2017-02-02 19:09 | ED.PDOC ---
General ED Provider: Dr. CAMILA GUILLERMO-ER Chief Complaint: Non-specific Complaint Stated Complaint: lety had a headache since this am--no nausea or vomiting Time Seen by Physician: 18:10 Mode of Arrival: Walk-In Information Source: Patient Exam Limitations: No limitations Primary Care Provider: JACK YUEN Nursing and Triage Documentation Reviewed and Agree: Yes Neurological Complaint Exam - Headache Complaint/Exam Onset: Gradual Duration: 8hrs Symptoms Are: Still present Timing: Constant Episodes Lasting: Hours Worst Headache Ever: No Initial Severity: Moderate Current Severity: Moderate Location: Diffuse Character: Reports: Dull, Throbbing, Typical headache Alleviating: Reports: None Associated Signs and Symptoms: Reports: Nausea. Denies: Dizziness, Seizure, Vomiting, Sinus pressure, Fever, Neck pain, Neck stiffness, Decreased LOC, Visual changes Related History: Reports: Similar episode Related Surgical History: Reports: None Normal Head CT Within Last 12 Months: Yes Papilledema Present: No Temporal Artery Tenderness: Present: None Sinus Tenderness: Present: None TMJ Tenderness: Present: None Glascow Coma Scale (see protocol): 15 Meningeal Signs Positive: No Pain on Passive Flexion-Positive Kernig's: No ROM Limited In: No Limitiations Focal Weakness: Present: None Focal Sensory Loss: Present: None Gait: Normal Nystagmus Present: No Gag Reflex Present: Yes [id number]: Normal Findings Romberg Test Positive: No Babinski Sign: Negative Right, Negative Left Heel to Toe Normal: Yes Differential Diagnoses: Other Review of Systems - Review Of Systems Constitutional: Reports: No symptoms Eyes: Reports: No symptoms Ears, Nose, Mouth, Throat: Reports: No symptoms Respiratory: Reports: No symptoms Cardiac: Reports: No symptoms GI: Reports: No symptoms : Reports: No symptoms Musculoskeletal: Reports: No symptoms Skin: Reports: No symptoms Neurological: Reports: Headache Endocrine: Reports: No symptoms Hematologic/Lymphatic: Reports: No symptoms All Other Systems: Reviewed and Negative Past Medical History - Past Medical History Previously Healthy: No Endocrine: Reports: DM 2 Cardiovascular: Reports: None Respiratory: Reports: None Hematological: Reports: None Gastrointestinal: Reports: GERD Genitourinary: Reports: None Neuro/Psych: Reports: None Musculoskeletal: Reports: Other (LEFT SHOULDER PAIN WITH MOTION) 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 ) - Surgical History General Surgical History: Reports: Appendectomy - Family History Family History: Reports: None - Social History Smoking Status: Former smoker Hx Substance Use: No (marijuana) Alcohol Screening: Occasionally Lives: With family Physical Exam - Physical Exam Appearance: Well-appearing, No pain distress, Well-nourished Eyes: WILLIAM ENT: Ears normal, Nose normal, Oropharynx normal Neck: Supple Respiratory: Airway patent Cardiovascular: RRR, Pulses normal, No rub, No murmur GI/: Soft, Nontender, No masses, Bowel sounds normal, No Organomegaly Musculoskeletal: Normal strength Skin: Warm, Dry, Normal color Neurological: Sensation intact, Motor intact, Reflexes intact, Cranial nerves intact, Alert, Oriented Psychiatric: Affect appropriate, Mood appropriate Re-Evaluation - Re-Evaluation Time of Re-Evaluation: 19:30 Critical Care Note - Critical Care Note Total Time (mins): 0 Course - Course Orders, Labs, Meds: Orders Category Date Time Status Hydromorphone HCl/Pf [Dilaudid 2 mg/ml Syringe] MEDS 02/02/17 19:06 Stat 2 mg IM ONCE STA Promethazine HCl [Phenergan 25 mg/ml Vial] MEDS 02/02/17 19:06 Stat 25 mg IM ONCE STA Medications Generic Name Dose Route Start Last Admin Trade Name Freq PRN Reason Stop Dose Admin Hydromorphone HCl 2 mg 02/02/17 19:06 Dilaudid 2 Mg/Ml Syringe IM 02/02/17 19:07 ONCE STA Promethazine HCl 25 mg 02/02/17 19:06 Phenergan 25 Mg/Ml Vial IM 02/02/17 19:07 ONCE STA Vital Signs: Temp Pulse Resp BP Pulse Ox 02/02/17 18:06 98.5 F 116 H 20 104/75 98 Departure - Departure Time of Disposition: 19:09 Disposition: HOME SELF-CARE Discharge Problem: Headache Qualifiers: Headache type: unspecified Headache chronicity pattern: chronic headache Intractability: not intractable Qualified Code(s): R51 - Headache Instructions: General Headache (ED) Condition: Good Pt referred to PMD for follow-up: Yes Additional Instructions: f/u with dr yuen Allergies/Adverse Reactions: Allergies codeine Allergy (Verified 02/02/17 18:09) sulfamethoxazole [From Bactrim] Allergy (Verified 02/02/17 18:09) trimethoprim [From Bactrim] Allergy (Verified 02/02/17 18:09) aspirin Adverse Reaction (Verified 02/02/17 18:09) states can take a baby aspirin, but a regular one makes him nauseated. tramadol HCl [From [facility]] Adverse Reaction (Verified 02/02/17 18:09) Home Medications: Ambulatory Orders Lisinopril [Zestril] 10 mg PO DAILY 06/08/13 Lansoprazole [Prevacid] 30 mg PO DAILY 06/27/14 Glyburide 10 mg PO DAILY 09/26/15 Insulin Glargine,Hum.rec.anlog [Lantus Solostar] 40 unit SQ BEDTIME PRN Enoxaparin Sodium [Lovenox] 80 mg SQ BID 01/28/16 Potassium 99 mg PO DAILY 10/15/16 Diazepam [Valium] 10 mg PO PRN PRN 12/22/16 Folic Acid 1 mg PO DAILY 12/22/16 Levothyroxine Sodium 50 mcg PO DAILY 01/19/17 Oxycodone-Acetaminophen 10-325 [Percocet 10-325] 10 mg PO DAILY 01/19/17 Disposition Discussed With: Patient, Family
== END 2017-02-02 19:16 | disposition home or self-care (01) ==
LOC: ED 18:06
DX: R51 Headache (principal)
CPT/HCPCS: 96372; 99282

== ENCOUNTER 2017-02-15 17:27 | Emergency (ER) ==
[2017-02-15 17:27] VITALS: BMI 27.3
[2017-02-15 17:30] VITALS: BP 107/68; TEMP 98.9
[2017-02-15] MEDS ORDERED: MORPHINE 2 MG/ML SYRINGE IM STA (17:58)
[2017-02-15] MEDS ORDERED: ZOFRAN 4 MG/2 ML IM STA (17:58)
--- NOTE | 2017-02-15 18:36 | ED.PDOC ---
General ED Provider: Dr. ULISSES CALDERON Chief Complaint: Nausea/Vomiting Stated Complaint: N/V/ COUGH S/P CHEMO Time Seen by Physician: 17:45 (SEEN WITH STAFF) Mode of Arrival: Walk-In Information Source: Patient Exam Limitations: No limitations Primary Care Provider: JACK POSADA Nursing and Triage Documentation Reviewed and Agree: Yes Reviewed sepsis parameters & appropriate labs ordered?: Yes System Inflammatory Response Syndrome: Not Applicable Sepsis Protocol: For patient's 13 years and over: Temp is 96.8 and below OR 101 and greater Pulse >90 BPM Resp >20/minute Acutely Altered Mental Status Are patient's symptoms suggestive of a new infection, such as: -Pneumonia -Skin, Soft Tissue -Endocarditis -UTI -Bone, Joint Infection -Implantable Device -Acute Abdominal Infection -Wound Infection -Meningitis -Blood Stream Catheter Infection -Unknown Respiratory Complaint Exam - Respiratory Complaint/Exam Onset/Duration: COUGH [id number] HAD CHEMO 3 DAYS AGO HAS BEEN NAUSEATED Symptoms Are: Resolved Timing: Intermittent Initial Severity: Moderate Current Severity: Mild Location: Chest Character: Reports: Non-productive cough Aggravating: Reports: None Alleviating: Reports: Spontaneous resolution Associated Signs and Symptoms: Denies: Rapid breathing, Dyspnea, Fever, Chills, Chest pain, Pleuritic chest pain, Wheezing, Hemoptysis, Dizziness, Calf pain, Calf swelling, Edema, URI, Nasal congestion, Hoarseness, Sinus discomfort, Vomiting, Sore throat, Weight loss, Decreased oral intake, Increased thirst, Increased appetite, Increased urination Related History: Reports: Similar episode History of Healthcare-Acquired Pneumonia: No Related Surgical History: Reports: None Pulmonary Embolism Risk Factors: Malignancy Pseudomonas Risk Factors: Reports: Chronic Lung Disease Status Asthmaticus Risk Factors: Reports: None Home Oxygen Use: No Recent Stress Test: No Recent Echo/LV Function: No Current Antibiotic Use: No Current Asthma Medication Use: No Respiratory Distress: None Inadequate Respiratory Effort: No Dysphagia Present: No Stridor Present: No JVD Present: No Retractions: Not Present Grunting Respirations: No Kussmaul Respirations: No Differential Diagnoses: Pneumonia, Bronchitis Review of Systems - Review Of Systems Constitutional: Reports: No symptoms Eyes: Reports: No symptoms Ears, Nose, Mouth, Throat: Reports: No symptoms Respiratory: Reports: Cough Cardiac: Reports: No symptoms GI: Reports: No symptoms : Reports: No symptoms Musculoskeletal: Reports: No symptoms Skin: Reports: No symptoms Neurological: Reports: No symptoms Endocrine: Reports: No symptoms Hematologic/Lymphatic: Reports: No symptoms All Other Systems: Reviewed and Negative Past Medical History - Past Medical History Previously Healthy: No Endocrine: Reports: DM 2 Cardiovascular: Reports: None Respiratory: Reports: None Hematological: Reports: None Gastrointestinal: Reports: GERD Genitourinary: Reports: None Neuro/Psych: Reports: None Musculoskeletal: Reports: Other (LEFT SHOULDER PAIN WITH MOTION) 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 ) - Surgical History General Surgical History: Reports: Appendectomy - Family History Family History: Reports: None - Social History Smoking Status: Former smoker Hx Substance Use: No (marijuana) Alcohol Screening: Occasionally - Immunizations Tetanus Shot up to Date: No Physical Exam - Physical Exam Appearance: Ill-appearing Ill-appearing: Mild Pain Distress: Mild Eyes: WILLIAM, EOMI, Conjunctiva clear ENT: Ears normal, Nose normal, Oropharynx normal Respiratory: Rhonchi Cardiovascular: RRR, Pulses normal, No rub, No murmur GI/: Soft, Nontender, No masses, Bowel sounds normal, No Organomegaly Musculoskeletal: Normal strength, ROM intact, No edema, No calf tenderness Skin: Warm, Dry, Normal color Neurological: Sensation intact, Motor intact, Reflexes intact, Cranial nerves intact, Alert, Oriented Psychiatric: Affect appropriate, Mood appropriate Interpretation - Radiology Interpretation Radiology Interpretation By: Radiologist Critical Care Note - Critical Care Note Total Time (mins): 0 Course - Course Hematology/Chemistry: 02/15/17 18:05 Orders, Labs, Meds: Lab Review 02/15/17 18:05 WBC 23.92 H RBC 3.62 L Hgb 11.1 L Hct 32.0 L MCV 88.4 MCH 30.7 MCHC 34.7 RDW Coeff of Melanie 16.1 H Plt Count 243 Immature Gran % (Auto) 6.8 H Neut % (Auto) 88.7 Lymph % (Auto) 2.7 L [place] % (Auto) 1.4 Eos % (Auto) 0.1 Baso % (Auto) 0.3 Immature Gran # (Auto) 1.6 H Neut # 21.2 H Lymph # 0.7 [place] # 0.3 L Eos # 0.0 Baso # 0.1 Orders Category Date Time Status BLOOD CULTURE (ED ONLY) Stat LAB 02/15/17 18:05 Received CBC W/ AUTO DIFF Stat LAB 02/15/17 18:05 Completed COMPREHENSIVE METABOLIC PANEL Stat LAB 02/15/17 18:05 Received MOLECULAR FLU A/B Stat LAB 02/15/17 18:18 Received MOLECULAR GROUP A STREP Stat LAB 02/15/17 18:18 Received Morphine Sulfate [Morphine 2 mg/ml Syringe] MEDS 02/15/17 17:58 Discontinued 4 mg IM ONCE STA Ondansetron HCl/Pf [Zofran 4 mg/2 ml] MEDS 02/15/17 17:58 Discontinued 4 mg IM ONCE STA CHEST, 2 VIEWS PA & LAT Stat RADS 02/15/17 17:57 Taken Medications Discontinued Medications Generic Name Dose Route Start Last Admin Trade Name Freq PRN Reason Stop Dose Admin Morphine Sulfate 4 mg 02/15/17 17:58 02/15/17 18:21 Morphine 2 Mg/Ml Syringe IM 02/15/17 17:59 4 mg ONCE STA Administration Ondansetron HCl 4 mg 02/15/17 17:58 02/15/17 18:21 Zofran 4 Mg/2 Ml IM 02/15/17 17:59 4 mg ONCE STA Administration Vital Signs: Temp Pulse Resp BP Pulse Ox 02/15/17 17:27 98.9 F 145 H 20 107/68 98 Departure - Departure Time of Disposition: 19:00 Disposition: HOME SELF-CARE Discharge Problem: Nausea, Vomiting Instructions: Acute Nausea and Vomiting (ED) Condition: Good Pt referred to PMD for follow-up: Yes Additional Instructions: Please call your Family Physician as soon as possible to schedule a follow-up appointment. Allergies/Adverse Reactions: Allergies codeine Allergy (Verified 02/15/17 17:30) sulfamethoxazole [From Bactrim] Allergy (Verified 02/15/17 17:30) trimethoprim [From Bactrim] Allergy (Verified 02/15/17 17:30) aspirin Adverse Reaction (Verified 02/15/17 17:30) states can take a baby aspirin, but a regular one makes him nauseated. tramadol HCl [From Ultram] Adverse Reaction (Verified 02/15/17 17:30) Home Medications: Ambulatory Orders Lisinopril [Zestril] 10 mg PO DAILY 06/08/13 Lansoprazole [Prevacid] 30 mg PO DAILY 06/27/14 Glyburide 10 mg PO DAILY 09/26/15 Insulin Glargine,Hum.rec.anlog [Lantus Solostar] 40 unit SQ BEDTIME PRN Enoxaparin Sodium [Lovenox] 80 mg SQ BID 01/28/16 Potassium 99 mg PO DAILY 10/15/16 Diazepam [Valium] 10 mg PO PRN PRN 12/22/16 Folic Acid 1 mg PO DAILY 12/22/16 Levothyroxine Sodium 50 mcg PO DAILY 01/19/17 Oxycodone-Acetaminophen 10-325 [Percocet 10-325] 10 mg PO DAILY 01/19/17
--- NOTE | 2017-02-15 18:38 | DI ---
EXAM: PA and lateral views of the chest HISTORY: Cough with history of lung cancer COMPARISON: Chest Xray from 01/21/2009 FINDINGS: There is some scarring in the left mid lung region. There is no mass or effusion or conso lidation. There is a Port-A-Cath in place with the tip overlying the SVC. Cardiac and mediastinal s ilhouettes show no acute abnormality. There is an IVC filter in place and there has been prior cholec ystectomy. No acute osseous or soft tissue abnormalities. IMPRESSION: 1. No active disease. 2. Scarring in the left mid lung.
== END 2017-02-15 18:45 | disposition home or self-care (01) ==
LOC: ED 17:27
DX: R11.2 Nausea with vomiting, unspecified (principal); R05 Cough; C34.90 Malignant neoplasm of unspecified part of unspecified bronchus or lung; C79.31 Secondary malignant neoplasm of brain; Z79.899 Other long term (current) drug therapy
CPT/HCPCS: 36415; 80053; 85025; 87040; 87502; 87651; 96372; 99283

== ENCOUNTER 2017-02-16 00:15 | Emergency (ER) ==
[2017-02-16 00:27] VITALS: BP 113/81; TEMP 98.8; BMI 26.6
[2017-02-16] MEDS ORDERED: SODIUM CHLORIDE 500 ML IV STA (01:02)
[2017-02-16] MEDS ORDERED: ZOFRAN 4 MG/2 ML IVP STA (01:02)
--- NOTE | 2017-02-16 01:05 | ED.PDOC ---
General ED Provider: Dr. JAMIL BELLE Chief Complaint: Nausea/Vomiting Stated Complaint: Came for the nausea vomting, was here early, seen by Dr Coats , for the same reason. Time Seen by Physician: 01:04 Mode of Arrival: Walk-In Information Source: Patient Primary Care Provider: JACK POSADA Nursing and Triage Documentation Reviewed and Agree: Yes Reviewed sepsis parameters & appropriate labs ordered?: Yes Sepsis Protocol: For patient's 13 years and over: Temp is 96.8 and below OR 101 and greater Pulse >90 BPM Resp >20/minute Acutely Altered Mental Status Are patient's symptoms suggestive of a new infection, such as: -Pneumonia -Skin, Soft Tissue -Endocarditis -UTI -Bone, Joint Infection -Implantable Device -Acute Abdominal Infection -Wound Infection -Meningitis -Blood Stream Catheter Infection -Unknown GI Complaint Exam - Vomiting/Diarrhea Complaint/Exam Symptoms Are: Still present Episodes of Vomiting over last 24 Hours: 4 Episodes of Diarrhea Over Last 24 Hours: 0 Initial Severity: Moderate Current Severity: Mild Character of Vomiting: Reports: Non-bilious Character of Diarrhea: Reports: Watery Aggravating: Reports: Food, Liquids, Position, Movement Associated Signs and Symptoms: Reports: Dizziness, Light-headedness. Denies: Melena, Hematemesis, Fever, Abdominal pain, Cramping Related History: Reports: Similar episode Non-GI Risk Factors: Reports: None Surgical Obstruction Risk Factors: Reports: None Related Surgical History: Reports: None Abdominal Findings: Present: None Differential Diagnoses: Dehydration Review of Systems - Review Of Systems Constitutional: Reports: No symptoms Eyes: Reports: No symptoms Ears, Nose, Mouth, Throat: Reports: No symptoms Respiratory: Reports: No symptoms Cardiac: Reports: No symptoms GI: Reports: Nausea, Vomiting : Reports: No symptoms Musculoskeletal: Reports: No symptoms Skin: Reports: No symptoms Neurological: Reports: No symptoms Endocrine: Reports: No symptoms Hematologic/Lymphatic: Reports: No symptoms All Other Systems: Reviewed and Negative Past Medical History - Past Medical History Previously Healthy: No Endocrine: Reports: DM 2 Cardiovascular: Reports: None Respiratory: Reports: None Hematological: Reports: None Gastrointestinal: Reports: GERD Genitourinary: Reports: None Neuro/Psych: Reports: None Musculoskeletal: Reports: Other (LEFT SHOULDER PAIN WITH MOTION) 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 ) - Surgical History General Surgical History: Reports: Appendectomy - Family History Family History: Reports: None - Social History Smoking Status: Former smoker Hx Substance Use: No (marijuana) Alcohol Screening: Occasionally - Immunizations Tetanus Shot up to Date: Yes Physical Exam - Physical Exam Appearance: Ill-appearing Eyes: WILLIAM, EOMI, Conjunctiva clear ENT: Ears normal, Nose normal, Oropharynx normal Respiratory: Airway patent, Breath sounds clear, Breath sounds equal, Respirations nonlabored Cardiovascular: RRR, Pulses normal, No rub, No murmur GI/: Soft, Nontender, No masses, Bowel sounds normal, No Organomegaly Musculoskeletal: Normal strength, ROM intact, No edema, No calf tenderness Skin: Warm, Dry, Normal color Neurological: Sensation intact, Motor intact, Reflexes intact, Cranial nerves intact, Alert, Oriented Psychiatric: Affect appropriate, Mood appropriate Critical Care Note - Critical Care Note Total Time (mins): 0 Course - Course Orders, Labs, Meds: Orders Category Date Time Status ED IV/MEDIPORT/POWERPORT .ONCE EMERGENCY 02/16/17 01:02 Ordered 0.9 % Sodium Chloride [Saline Flush] MEDS 02/16/17 01:02 Ordered 1 syr IVF PRN PRN Ondansetron HCl/Pf [Zofran 4 mg/2 ml] MEDS 02/16/17 01:02 Stat 4 mg IVP ONCE STA SODIUM CHLORIDE 0.9% @ 500 MLS/HR(500ml) MEDS 02/16/17 01:02 Ordered Sodium Chloride 0.9% [Sodium Chloride] 500 ml IV BOLUS Medications Generic Name Dose Route Start Last Admin Trade Name Freq PRN Reason Stop Dose Admin Sodium Chloride 500 mls @ 500 mls/hr 02/16/17 01:02 Sodium Chloride IV 02/16/17 02:01 BOLUS STA Ondansetron HCl 4 mg 02/16/17 01:02 Zofran 4 Mg/2 Ml IVP 02/16/17 01:03 ONCE STA Sodium Chloride 1 syr 02/16/17 01:02 Saline Flush IVF PRN PRN To flush IV Vital Signs: Temp Pulse Resp BP Pulse Ox 02/16/17 00:16 98.8 F 134 H 20 113/81 96 Departure - Departure Time of Disposition: 01:07 Disposition: HOME SELF-CARE Discharge Problem: Vomiting Instructions: Dehydration (ED) Pt referred to PMD for follow-up: Yes Additional Instructions: Increase Hydration soft diet Prescriptions: Ondansetron [Zofran Odt] 4 mg PO Q8H #20 tab.rapdis Allergies/Adverse Reactions: Allergies codeine Allergy (Verified 02/16/17 00:29) NAUSEA/SWELLING sulfamethoxazole [From Bactrim] Allergy (Verified 02/16/17 00:29) Unknown UNKNOWN trimethoprim [From Bactrim] Allergy (Verified 02/16/17 00:29) Unknown UNKNOWN aspirin Adverse Reaction (Verified 02/15/17 17:30) states can take a baby aspirin, but a regular one makes him nauseated. tramadol HCl [From Ultram] Adverse Reaction (Verified 02/16/17 00:29) Vomiting Home Medications: Ambulatory Orders Lisinopril [Zestril] 10 mg PO DAILY 06/08/13 Lansoprazole [Prevacid] 30 mg PO DAILY 06/27/14 Glyburide 10 mg PO DAILY 09/26/15 Insulin Glargine,Hum.rec.anlog [Lantus Solostar] 40 unit SQ BEDTIME 09/26/15 Enoxaparin Sodium [Lovenox] 80 mg SQ BID 01/28/16 Potassium 99 mg PO DAILY 10/15/16 Folic Acid 1 mg PO DAILY 12/22/16 Levothyroxine Sodium 50 mcg PO DAILY 01/19/17 Oxycodone-Acetaminophen 10-325 [Percocet 10-325] 10 mg PO Q4-6H PRN 01/19/17 Ondansetron HCl [Zofran] 4 mg PO Q4H PRN 02/16/17 Ondansetron [Zofran Odt] 4 mg PO Q8H #20 tab.rapdis 02/16/17 Prochlorperazine Maleate [Compazine] 10 mg PO Q8H PRN 02/16/17 Disposition Discussed With: Patient
[2017-02-16] MEDS ORDERED: SODIUM CHLORIDE 1,000 ML IV STA (01:17)
== END 2017-02-16 02:20 | disposition home or self-care (01) ==
LOC: ED 00:15
DX: R11.2 Nausea with vomiting, unspecified (principal); R42 Dizziness and giddiness; E86.0 Dehydration; C34.90 Malignant neoplasm of unspecified part of unspecified bronchus or lung; C79.31 Secondary malignant neoplasm of brain; Z79.899 Other long term (current) drug therapy
CPT/HCPCS: 96361; 96374; 99282

== ENCOUNTER 2017-04-18 22:03 | Emergency (ER) ==
[2017-04-18] MEDS ORDERED: SODIUM CHLORIDE 1,000 ML IV STA (22:17)
[2017-04-18] MEDS ORDERED: DILAUDID 2 MG/ML SYRINGE IVP STA (22:17)
[2017-04-18] MEDS ORDERED: PHENERGAN 25 MG/ML VIAL 25 MG in SODIUM CHLORIDE 50 ML IV STA (22:17)
[2017-04-18] MEDS ORDERED: DILAUDID 1 MG/ML SYRINGE IVP PRN (22:18)
[2017-04-18 22:20] VITALS: BP 108/77; TEMP 99.1; BMI 24.5
--- NOTE | 2017-04-18 22:22 | ED.PDOC ---
General ED Provider: Dr. CAMILA GUILLERMO-ER Chief Complaint: Headache Stated Complaint: lety got a headache due to my chemo--this is the usual headache i have with nausea Time Seen by Physician: 22:20 Mode of Arrival: Walk-In Information Source: Patient Exam Limitations: No limitations Primary Care Provider: JACK POSADA Nursing and Triage Documentation Reviewed and Agree: Yes Reviewed sepsis parameters & appropriate labs ordered?: Yes System Inflammatory Response Syndrome: Not Applicable Sepsis Protocol: For patient's 13 years and over: Temp is 96.8 and below OR 101 and greater Pulse >90 BPM Resp >20/minute Acutely Altered Mental Status Are patient's symptoms suggestive of a new infection, such as: -Pneumonia -Skin, Soft Tissue -Endocarditis -UTI -Bone, Joint Infection -Implantable Device -Acute Abdominal Infection -Wound Infection -Meningitis -Blood Stream Catheter Infection -Unknown Neurological Complaint Exam - Headache Complaint/Exam Onset: Gradual Duration: several hours Symptoms Are: Still present Timing: Constant Episodes Lasting: Hours Worst Headache Ever: No Initial Severity: Moderate Current Severity: Moderate Location: Diffuse Character: Reports: Dull, Throbbing, Pressure Aggravating: Reports: None Alleviating: Reports: None Associated Signs and Symptoms: Reports: Nausea. Denies: Dizziness, Seizure, Vomiting, Sinus pressure, Fever, Neck pain, Neck stiffness, Decreased LOC, Visual changes Related History: Reports: Similar episode Related Surgical History: Reports: None SAH Risk Factors: Reports: None Meningitis Risk Factors: Reports: None SDH Risk Factors: Reports: None Temporal Arteritis Risk Factors: Reports: None Normal Head CT Within Last 12 Months: Yes Fundoscopic Exam: Present: Normal Findings Papilledema Present: No Temporal Artery Tenderness: Present: None Sinus Tenderness: Present: None TMJ Tenderness: Present: None Glascow Coma Scale (see protocol): 15 Meningeal Signs Positive: No Pain on Passive Flexion-Positive Kernig's: No ROM Limited In: No Limitiations Focal Weakness: Present: None Focal Sensory Loss: Present: None Gait: Normal Nystagmus Present: No Gag Reflex Present: No [id number]: Normal Findings Romberg Test Positive: Yes Babinski Sign: Negative Right, Negative Left Heel to Toe Normal: Yes Differential Diagnoses: Other Review of Systems - Review Of Systems Constitutional: Reports: No symptoms Eyes: Reports: No symptoms Ears, Nose, Mouth, Throat: Reports: No symptoms Respiratory: Reports: No symptoms Cardiac: Reports: No symptoms GI: Reports: No symptoms, Nausea, Vomiting : Reports: No symptoms Musculoskeletal: Reports: No symptoms Skin: Reports: No symptoms Neurological: Reports: Headache Endocrine: Reports: No symptoms Hematologic/Lymphatic: Reports: No symptoms All Other Systems: Reviewed and Negative Past Medical History - Past Medical History Previously Healthy: No Endocrine: Reports: DM 2 Cardiovascular: Reports: None Respiratory: Reports: None Hematological: Reports: None Gastrointestinal: Reports: GERD Genitourinary: Reports: None Neuro/Psych: Reports: None Musculoskeletal: Reports: Other (LEFT SHOULDER PAIN WITH MOTION) 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 ) - Surgical History General Surgical History: Reports: Appendectomy - Family History Family History: Reports: None - Social History Smoking Status: Former smoker Hx Substance Use: No (marijuana) Alcohol Screening: Occasionally Physical Exam - Physical Exam Appearance: Well-appearing, No pain distress, Well-nourished Pain Distress: Moderate Eyes: WILLIAM, EOMI, Conjunctiva clear ENT: Ears normal, Nose normal, Oropharynx normal Neck: Supple Respiratory: Airway patent, Breath sounds clear, Breath sounds equal, Respirations nonlabored Cardiovascular: RRR, Pulses normal, No rub, No murmur GI/: Soft, Nontender, No masses, Bowel sounds normal, No Organomegaly Musculoskeletal: Normal strength Skin: Warm, Dry, Normal color Neurological: Sensation intact, Motor intact, Reflexes intact, Cranial nerves intact, Alert, Oriented Psychiatric: Affect appropriate, Mood appropriate Critical Care Note - Critical Care Note Total Time (mins): 0 Course - Course Orders, Labs, Meds: Orders Category Date Time Status ED IV/MEDIPORT/POWERPORT .ONCE EMERGENCY 04/18/17 22:17 Active 0.9 % Sodium Chloride [Saline Flush] MEDS 04/18/17 22:17 Ordered 1 syr IVF PRN PRN Hydromorphone HCl [Dilaudid 1 mg/ml Syringe] MEDS 04/18/17 22:18 Ordered 1 mg IVP Q1-2H PRN Promethazine HCl [Phenergan 25 mg/ml Vial] 25 mg MEDS 04/18/17 22:17 Active 0.9 % Sodium Chloride [Sodium Chloride] 50 ml IV ONCE Sodium Chloride 0.9% [Sodium Chloride] 1,000 ml MEDS 04/18/17 22:17 Active IV BOLUS Medications Generic Name Dose Route Start Last Admin Trade Name Freq PRN Reason Stop Dose Admin Hydromorphone HCl 1 mg 04/18/17 22:18 Dilaudid 1 Mg/Ml Syringe IVP Q1-2H PRN MODERATE PAIN Promethazine HCl 25 mg/ Sodium 51 mls @ 75 mls/hr 04/18/17 22:17 Chloride IV 04/18/17 22:57 ONCE STA Sodium Chloride 1,000 mls @ 1,000 mls/hr 04/18/17 22:17 Sodium Chloride IV 04/18/17 23:16 BOLUS STA Sodium Chloride 1 syr 04/18/17 22:17 Saline Flush IVF PRN PRN To flush IV Departure - Departure Time of Disposition: 22:23 Disposition: HOME SELF-CARE Discharge Problem: Headache Instructions: Acute Headache (ED) Condition: Good Pt referred to PMD for follow-up: Yes IPMP verified?: No Additional Instructions: f/u [facility]/oncologist Allergies/Adverse Reactions: Allergies codeine Allergy (Verified 02/16/17 00:29) NAUSEA/SWELLING sulfamethoxazole [From Bactrim] Allergy (Verified 02/16/17 00:29) Unknown UNKNOWN trimethoprim [From Bactrim] Allergy (Verified 02/16/17 00:29) Unknown UNKNOWN aspirin Adverse Reaction (Verified 02/15/17 17:30) states can take a baby aspirin, but a regular one makes him nauseated. tramadol HCl [From Ultram] Adverse Reaction (Verified 02/16/17 00:29) Vomiting Home Medications: Ambulatory Orders Lisinopril [Zestril] 10 mg PO DAILY 06/08/13 Lansoprazole [Prevacid] 30 mg PO DAILY 06/27/14 Glyburide 10 mg PO DAILY 09/26/15 Insulin Glargine,Hum.rec.anlog [Lantus Solostar] 40 unit SQ BEDTIME 09/26/15 Potassium 99 mg PO DAILY 10/15/16 Folic Acid 1 mg PO DAILY 12/22/16 Levothyroxine Sodium 50 mcg PO DAILY 01/19/17 Oxycodone-Acetaminophen 10-325 [Percocet 10-325] 10 mg PO Q4-6H PRN 01/19/17 Ondansetron [Zofran Odt] 4 mg PO Q8H #20 tab.rapdis 02/16/17 Prochlorperazine Maleate [Compazine] 10 mg PO Q8H PRN 02/16/17 Rivaroxaban [Xarelto] 10 mg PO DAILY 04/18/17 Disposition Discussed With: Patient
[2017-04-18] MEDS ORDERED: PHENERGAN 25 MG/ML VIAL ONE (22:50)
[2017-04-18] MEDS ORDERED: DILAUDID 1 MG/ML SYRINGE ONE (23:18)
== END 2017-04-19 01:00 | disposition home or self-care (01) ==
LOC: ED 22:03
DX: R51 Headache (principal); C34.90 Malignant neoplasm of unspecified part of unspecified bronchus or lung; C79.31 Secondary malignant neoplasm of brain; Z79.899 Other long term (current) drug therapy
CPT/HCPCS: 82962; 96361; 96365; 96375; 99283

== ENCOUNTER 2017-05-06 19:45 | Emergency (ER) ==
[2017-05-06 19:51] VITALS: BP 105/68; TEMP 99.1; BMI 23.6
[2017-05-06] MEDS ORDERED: ZOFRAN 4 MG/2 ML IM STA (20:00)
[2017-05-06] MEDS ORDERED: DILAUDID 1 MG/ML SYRINGE IM STA (20:29)
--- NOTE | 2017-05-06 20:32 | ED.PDOC ---
General ED Provider: Dr. JAMIL BELLE Chief Complaint: Nausea/Vomiting Stated Complaint: Patient had Radiation last week, chemo on friday, ever since he is been hurting in the head, started vomiting since morning. not able to keep anything down. Time Seen by Physician: 20:05 Mode of Arrival: Walk-In Information Source: Patient Primary Care Provider: JACK POSADA Nursing and Triage Documentation Reviewed and Agree: Yes Reviewed sepsis parameters & appropriate labs ordered?: No System Inflammatory Response Syndrome: Not Applicable Sepsis Protocol: For patient's 13 years and over: Temp is 96.8 and below OR 101 and greater Pulse >90 BPM Resp >20/minute Acutely Altered Mental Status Are patient's symptoms suggestive of a new infection, such as: -Pneumonia -Skin, Soft Tissue -Endocarditis -UTI -Bone, Joint Infection -Implantable Device -Acute Abdominal Infection -Wound Infection -Meningitis -Blood Stream Catheter Infection -Unknown GI Complaint Exam - Vomiting/Diarrhea Complaint/Exam Symptoms Are: Resolved Episodes of Vomiting over last 24 Hours: 4 Episodes of Diarrhea Over Last 24 Hours: 2 Initial Severity: Moderate Current Severity: None Character of Vomiting: Reports: Non-bilious Character of Diarrhea: Reports: Watery Aggravating: Reports: Food, Liquids Alleviating: Reports: None Associated Signs and Symptoms: Reports: Light-headedness. Denies: Dizziness, Melena, Hematemesis, Fever, Abdominal pain, Cramping Related History: Reports: Similar episode Non-GI Risk Factors: Reports: None Surgical Obstruction Risk Factors: Reports: None Related Surgical History: Reports: None Abdominal Findings: Present: None Differential Diagnoses: Other (chemo rel;ated nausea vomting) Review of Systems - Review Of Systems Constitutional: Reports: Malaise, Weakness Eyes: Reports: No symptoms Ears, Nose, Mouth, Throat: Reports: No symptoms Respiratory: Reports: No symptoms Cardiac: Reports: No symptoms GI: Reports: Diarrhea, Nausea, Vomiting : Reports: No symptoms Musculoskeletal: Reports: No symptoms Skin: Reports: No symptoms Neurological: Reports: Headache Endocrine: Reports: No symptoms Hematologic/Lymphatic: Reports: No symptoms All Other Systems: Reviewed and Negative Past Medical History - Past Medical History Previously Healthy: No Endocrine: Reports: DM 2 Cardiovascular: Reports: None Respiratory: Reports: None Hematological: Reports: None Gastrointestinal: Reports: GERD Genitourinary: Reports: None Neuro/Psych: Reports: None Musculoskeletal: Reports: Other (LEFT SHOULDER PAIN WITH MOTION) 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 ) - Surgical History General Surgical History: Reports: Appendectomy - Family History Family History: Reports: None - Social History Smoking Status: Former smoker Hx Substance Use: No (marijuana) Alcohol Screening: Occasionally - Immunizations Tetanus Shot up to Date: Yes Physical Exam - Physical Exam Appearance: Ill-appearing, Well-nourished Pain Distress: Moderate (headache) Eyes: WILLIAM, EOMI, Conjunctiva clear ENT: Ears normal, Nose normal, Oropharynx normal Respiratory: Airway patent, Breath sounds clear, Breath sounds equal, Respirations nonlabored Cardiovascular: RRR, Pulses normal, No rub, No murmur GI/: Soft, Nontender, No masses, Bowel sounds normal, No Organomegaly Musculoskeletal: Normal strength, ROM intact, No edema, No calf tenderness Skin: Warm, Dry, Normal color Neurological: Sensation intact, Motor intact, Reflexes intact, Cranial nerves intact, Alert, Oriented Psychiatric: Affect appropriate, Mood appropriate Re-Evaluation - Re-Evaluation Time of Re-Evaluation: 21:26 Status: Improved Critical Care Note - Critical Care Note Total Time (mins): 25 Course - Course Hematology/Chemistry: 05/06/17 20:19 05/06/17 20:19 Orders, Labs, Meds: Lab Review 05/06/17 05/06/17 20:19 20:19 WBC 2.80 L RBC 3.01 L Hgb 9.8 L Hct 28.1 L MCV 93.4 MCH 32.6 H MCHC 34.9 RDW Coeff of Melanie 15.1 H Plt Count 157 Neutrophils % (Manual) 79.0 H Lymphocytes % (Manual) 16.0 Monocytes % (Manual) 3.0 Basophils % (Manual) 2.0 H Anisocytosis Not present Sodium 138 Potassium 3.1 L Chloride 101 Carbon Dioxide 28 Anion Gap 12.1 BUN 8 Creatinine 0.66 Estimated GFR (MDRD) 131.00 BUN/Creatinine Ratio 12.12 Glucose 153 H Calcium 9.2 Total Bilirubin 0.7 AST 19 ALT 14 Alkaline Phosphatase 98 Total Protein 7.0 Albumin 4.0 Globulin 3.0 Albumin/Globulin Ratio 1.33 Orders Category Date Time Status CBC W/ AUTO DIFF Stat LAB 05/06/17 20:19 Completed COMPREHENSIVE METABOLIC PANEL Stat LAB 05/06/17 20:19 Completed MANUAL DIFFERENTIAL Stat LAB 05/06/17 20:19 Completed Hydromorphone HCl [Dilaudid 1 mg/ml Syringe] MEDS 05/06/17 20:29 Discontinued 1 mg IM ONCE STA Ondansetron HCl/Pf [Zofran 4 mg/2 ml] MEDS 05/06/17 20:00 Discontinued 4 mg IM ONCE STA Potassium Chloride [K-Dur] MEDS 05/06/17 21:01 Discontinued 40 meq PO ONCE STA Medications Discontinued Medications Generic Name Dose Route Start Last Admin Trade Name Kashif PRN Reason Stop Dose Admin Hydromorphone HCl 1 mg 05/06/17 20:29 05/06/17 21:02 Dilaudid 1 Mg/Ml Syringe IM 05/06/17 20:30 1 mg ONCE STA Administration Ondansetron HCl 4 mg 05/06/17 20:00 05/06/17 20:09 Zofran 4 Mg/2 Ml IM 05/06/17 20:01 4 mg ONCE STA Administration Potassium Chloride 40 meq 05/06/17 21:01 05/06/17 21:05 K-Dur PO 05/06/17 21:02 40 meq ONCE STA Administration Vital Signs: Temp Pulse Resp BP Pulse Ox 05/06/17 19:46 99.1 F 110 H 16 105/68 98 Departure - Departure Time of Disposition: 20:30 Disposition: HOME SELF-CARE Discharge Problem: Chemotherapy induced nausea and vomiting Instructions: Chemo Induced Nausea and Vomiting (ED) Condition: Stable Pt referred to PMD for follow-up: Yes IPMP verified?: No Additional Instructions: Increase hydration Keep f/u with PMD Allergies/Adverse Reactions: Allergies codeine Allergy (Verified 05/06/17 19:52) NAUSEA/SWELLING sulfamethoxazole [From Bactrim] Allergy (Verified 05/06/17 19:52) Unknown UNKNOWN trimethoprim [From Bactrim] Allergy (Verified 05/06/17 19:52) Unknown UNKNOWN aspirin Adverse Reaction (Verified 05/06/17 19:52) states can take a baby aspirin, but a regular one makes him nauseated. tramadol HCl [From Ultram] Adverse Reaction (Verified 05/06/17 19:52) Vomiting Home Medications: Ambulatory Orders Lisinopril [Zestril] 10 mg PO DAILY 06/08/13 Lansoprazole [Prevacid] 30 mg PO DAILY 06/27/14 Glyburide 10 mg PO DAILY 09/26/15 Insulin Glargine,Hum.rec.anlog [Lantus Solostar] 40 unit SQ BEDTIME 09/26/15 Potassium 99 mg PO DAILY 10/15/16 Folic Acid 1 mg PO DAILY 12/22/16 Levothyroxine Sodium 50 mcg PO DAILY 01/19/17 Oxycodone-Acetaminophen 10-325 [Percocet 10-325] 10 mg PO Q4-6H PRN 01/19/17 Ondansetron [Zofran Odt] 4 mg PO Q8H #20 tab.rapdis 02/16/17 Prochlorperazine Maleate [Compazine] 10 mg PO Q8H PRN 02/16/17 Rivaroxaban [Xarelto] 10 mg PO DAILY 04/18/17 Disposition Discussed With: Patient
[2017-05-06] MEDS ORDERED: K-DUR PO STA (21:01)
== END 2017-05-06 21:26 | disposition home or self-care (01) ==
LOC: ED 19:45
DX: R11.2 Nausea with vomiting, unspecified (principal); T45.1X5A Adverse effect of antineoplastic and immunosuppressive drugs, initial encounter; R51 Headache; C34.90 Malignant neoplasm of unspecified part of unspecified bronchus or lung; C79.31 Secondary malignant neoplasm of brain
CPT/HCPCS: 36415; 80053; 85007; 85025; 96372; 99283

== ENCOUNTER 2017-05-19 22:04 | Emergency (ER) ==
[2017-05-19] MEDS ORDERED: SODIUM CHLORIDE 1,000 ML IV STA (22:14)
[2017-05-19] MEDS ORDERED: DILAUDID 1 MG/ML SYRINGE IVP STA (22:15)
[2017-05-19] MEDS ORDERED: PHENERGAN 25 MG/ML VIAL 25 MG in SODIUM CHLORIDE 50 ML IV STA (22:15)
[2017-05-19 22:18] VITALS: BP 108/77; TEMP 98.4; BMI 24.1
--- NOTE | 2017-05-19 22:18 | ED.PDOC ---
General ED Provider: Dr. CAMILA GUILLERMO-ER Chief Complaint: Nausea/Vomiting Stated Complaint: lety got chemo sickness--lety got nausea, vomiting, diarrhea and murcia Time Seen by Physician: 22:16 Mode of Arrival: Walk-In Information Source: Patient Exam Limitations: No limitations Primary Care Provider: JACK POSADA Nursing and Triage Documentation Reviewed and Agree: Yes Reviewed sepsis parameters & appropriate labs ordered?: Yes System Inflammatory Response Syndrome: Not Applicable Sepsis Protocol: For patient's 13 years and over: Temp is 96.8 and below OR 101 and greater Pulse >90 BPM Resp >20/minute Acutely Altered Mental Status Are patient's symptoms suggestive of a new infection, such as: -Pneumonia -Skin, Soft Tissue -Endocarditis -UTI -Bone, Joint Infection -Implantable Device -Acute Abdominal Infection -Wound Infection -Meningitis -Blood Stream Catheter Infection -Unknown GI Complaint Exam - Vomiting/Diarrhea Complaint/Exam Onset/Duration: a few hours Symptoms Are: Still present Episodes of Vomiting over last 24 Hours: 4 Episodes of Diarrhea Over Last 24 Hours: 6 Initial Severity: Mild Current Severity: Mild Character of Vomiting: Reports: Non-bilious Character of Diarrhea: Reports: Watery Aggravating: Reports: None Alleviating: Reports: None Associated Signs and Symptoms: Denies: Dizziness, Light-headedness, Melena, Hematemesis, Fever, Abdominal pain, Cramping Abdominal Findings: Present: None Differential Diagnoses: Other Review of Systems - Review Of Systems Constitutional: Reports: No symptoms Eyes: Reports: No symptoms Ears, Nose, Mouth, Throat: Reports: No symptoms Respiratory: Reports: No symptoms Cardiac: Reports: No symptoms GI: Reports: Diarrhea, Nausea, Vomiting : Reports: No symptoms Musculoskeletal: Reports: No symptoms Skin: Reports: No symptoms Neurological: Reports: Headache Endocrine: Reports: No symptoms Hematologic/Lymphatic: Reports: No symptoms All Other Systems: Reviewed and Negative Past Medical History - Past Medical History Previously Healthy: No Endocrine: Reports: DM 2 Cardiovascular: Reports: None Respiratory: Reports: None Hematological: Reports: None Gastrointestinal: Reports: GERD Genitourinary: Reports: None Neuro/Psych: Reports: None Musculoskeletal: Reports: Other (LEFT SHOULDER PAIN WITH MOTION) 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 ) - Surgical History General Surgical History: Reports: Appendectomy - Family History Family History: Reports: None - Social History Smoking Status: Former smoker Hx Substance Use: No (marijuana) Alcohol Screening: Occasionally Physical Exam - Physical Exam Appearance: Well-appearing, No pain distress, Well-nourished Pain Distress: Mild Eyes: WILLIAM, EOMI, Conjunctiva clear ENT: Ears normal, Nose normal, Oropharynx normal Neck: Supple Respiratory: Airway patent Cardiovascular: RRR GI/: Soft, Nontender, No masses, Bowel sounds normal, No Organomegaly Musculoskeletal: Normal strength, ROM intact, No edema, No calf tenderness Skin: Warm, Dry, Normal color Neurological: Sensation intact, Motor intact, Reflexes intact, Cranial nerves intact, Alert, Oriented Psychiatric: Affect appropriate, Mood appropriate Re-Evaluation - Re-Evaluation Time of Re-Evaluation: 22:18 Status: Improved Vital Signs Stable: Yes Pain Level: 0 Appearance: NAD Lungs: Clear Skin: Warm and Dry Neuro: Alert and Oriented X3 CV: RRR Critical Care Note - Critical Care Note Total Time (mins): 0 Course - Course Orders, Labs, Meds: Orders Category Date Time Status ED IV/MEDIPORT/POWERPORT .ONCE EMERGENCY 05/19/17 22:14 Ordered 0.9 % Sodium Chloride [Saline Flush] MEDS 05/19/17 22:14 Ordered 1 syr IVF PRN PRN Hydromorphone HCl [Dilaudid 1 mg/ml Syringe] MEDS 05/19/17 22:15 Stat 1 mg IVP ONCE STA Promethazine HCl [Phenergan 25 mg/ml Vial] 25 mg MEDS 05/19/17 22:15 Ordered 0.9 % Sodium Chloride [Sodium Chloride] 50 ml IV ONCE SODIUM CHLORIDE 0.9% @ 1,000 MLS/HR(1,000ml) MEDS 05/19/17 22:14 Ordered Sodium Chloride 0.9% [Sodium Chloride] 1,000 ml IV BOLUS Departure - Departure Time of Disposition: 22:18 Disposition: HOME SELF-CARE Discharge Problem: Chemotherapy induced nausea and vomiting Instructions: Acute Nausea and Vomiting (ED) Condition: Good Pt referred to PMD for follow-up: Yes IPMP verified?: No Additional Instructions: f/u with pcp Allergies/Adverse Reactions: Allergies codeine Allergy (Verified 05/06/17 19:52) NAUSEA/SWELLING sulfamethoxazole [From Bactrim] Allergy (Verified 05/06/17 19:52) Unknown UNKNOWN trimethoprim [From Bactrim] Allergy (Verified 05/06/17 19:52) Unknown UNKNOWN aspirin Adverse Reaction (Verified 05/06/17 19:52) states can take a baby aspirin, but a regular one makes him nauseated. tramadol HCl [From [facility]] Adverse Reaction (Verified 05/06/17 19:52) Vomiting Home Medications: Ambulatory Orders Lisinopril [Zestril] 10 mg PO DAILY 06/08/13 Lansoprazole [Prevacid] 30 mg PO DAILY 06/27/14 Glyburide 10 mg PO DAILY 09/26/15 Insulin Glargine,Hum.rec.anlog [Lantus Solostar] 40 unit SQ BEDTIME 09/26/15 Potassium 99 mg PO DAILY 10/15/16 Folic Acid 1 mg PO DAILY 12/22/16 Levothyroxine Sodium 50 mcg PO DAILY 01/19/17 Oxycodone-Acetaminophen 10-325 [Percocet 10-325] 10 mg PO Q4-6H PRN 01/19/17 Ondansetron [Zofran Odt] 4 mg PO Q8H #20 tab.rapdis 02/16/17 Prochlorperazine Maleate [Compazine] 10 mg PO Q8H PRN 02/16/17 Rivaroxaban [Xarelto] 10 mg PO DAILY 04/18/17 Disposition Discussed With: Patient
[2017-05-19] MEDS ORDERED: PHENERGAN 25 MG/ML VIAL ONE (22:36)
[2017-05-20] MEDS ORDERED: DILAUDID 1 MG/ML SYRINGE IVP STA (00:30)
== END 2017-05-20 00:50 | disposition home or self-care (01) ==
LOC: ED 22:04
DX: R11.2 Nausea with vomiting, unspecified (principal); T45.1X5A Adverse effect of antineoplastic and immunosuppressive drugs, initial encounter; R19.7 Diarrhea, unspecified; R51 Headache; C34.90 Malignant neoplasm of unspecified part of unspecified bronchus or lung; C79.31 Secondary malignant neoplasm of brain
CPT/HCPCS: 96361; 96365; 96375; 96376; 99283

== ENCOUNTER 2017-05-30 21:27 | Emergency (ER) ==
[2017-05-30 21:42] VITALS: BP 118/86; TEMP 98.5; BMI 22.9
[2017-05-30] MEDS ORDERED: SODIUM CHLORIDE 1,000 ML IV STA (22:34)
[2017-05-30] MEDS ORDERED: PHENERGAN 25 MG/ML VIAL 12.5 MG in SODIUM CHLORIDE 50 ML IV STA (22:35)
--- NOTE | 2017-05-30 22:40 | ED.PDOC ---
General ED Provider: Dr. CAMILA GUILLERMO-ER Chief Complaint: Nausea/Vomiting Stated Complaint: im vomiting and having a headache Time Seen by Physician: 21:30 Mode of Arrival: Walk-In Information Source: Patient Exam Limitations: No limitations Primary Care Provider: JACK POSADA Nursing and Triage Documentation Reviewed and Agree: Yes Reviewed sepsis parameters & appropriate labs ordered?: Yes System Inflammatory Response Syndrome: Not Applicable Sepsis Protocol: For patient's 13 years and over: Temp is 96.8 and below OR 101 and greater Pulse >90 BPM Resp >20/minute Acutely Altered Mental Status Are patient's symptoms suggestive of a new infection, such as: -Pneumonia -Skin, Soft Tissue -Endocarditis -UTI -Bone, Joint Infection -Implantable Device -Acute Abdominal Infection -Wound Infection -Meningitis -Blood Stream Catheter Infection -Unknown GI Complaint Exam - Vomiting/Diarrhea Complaint/Exam Onset/Duration: several hours Symptoms Are: Still present Episodes of Vomiting over last 24 Hours: 2 Initial Severity: Mild Current Severity: Moderate Character of Vomiting: Reports: Non-bilious Aggravating: Reports: None Alleviating: Reports: None Associated Signs and Symptoms: Reports: Abdominal pain, Cramping Non-GI Risk Factors: Reports: None Kussmaul Respirations Present: No Differential Diagnoses: Dehydration, Viral Gastroenteritis Review of Systems - Review Of Systems Constitutional: Reports: No symptoms Eyes: Reports: No symptoms Ears, Nose, Mouth, Throat: Reports: No symptoms Respiratory: Reports: No symptoms Cardiac: Reports: No symptoms GI: Reports: Abdominal pain, Nausea, Vomiting : Reports: No symptoms Musculoskeletal: Reports: No symptoms Skin: Reports: No symptoms Neurological: Reports: No symptoms Endocrine: Reports: No symptoms Hematologic/Lymphatic: Reports: No symptoms All Other Systems: Reviewed and Negative Past Medical History - Past Medical History Previously Healthy: No Endocrine: Reports: DM 2 Cardiovascular: Reports: None Respiratory: Reports: None Hematological: Reports: None Gastrointestinal: Reports: GERD Genitourinary: Reports: None Neuro/Psych: Reports: None Musculoskeletal: Reports: Other (LEFT SHOULDER PAIN WITH MOTION) 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 ) - Surgical History General Surgical History: Reports: Appendectomy - Family History Family History: Reports: None - Social History Smoking Status: Former smoker Hx Substance Use: No (marijuana) Alcohol Screening: Occasionally - Immunizations Tetanus Shot up to Date: No Physical Exam - Physical Exam Appearance: Well-appearing, No pain distress, Well-nourished Eyes: WILLIAM ENT: Ears normal Respiratory: Airway patent, Breath sounds clear, Breath sounds equal, Respirations nonlabored Cardiovascular: RRR GI/: Soft, Nontender, No masses, Bowel sounds normal, No Organomegaly Musculoskeletal: Normal strength, ROM intact, No edema, No calf tenderness Skin: Warm, Dry, Normal color Neurological: Sensation intact, Motor intact, Reflexes intact, Cranial nerves intact, Alert, Oriented Psychiatric: Affect appropriate, Mood appropriate Critical Care Note - Critical Care Note Total Time (mins): 0 Course - Course Orders, Labs, Meds: Orders Category Date Time Status IV [ED IV/MEDIPORT/POWERPORT] .ONCE EMERGENCY 05/30/17 22:34 Active 0.9 % Sodium Chloride [Saline Flush] MEDS 05/30/17 22:34 Ordered 1 syr IVF PRN PRN Hydromorphone HCl [Dilaudid 1 mg/ml Syringe] MEDS 05/30/17 22:34 Ordered 1 mg IVP Q1HR PRN Promethazine HCl [Phenergan 25 mg/ml Vial] 12.5 mg MEDS 05/30/17 22:35 Active 0.9 % Sodium Chloride [Sodium Chloride] 50 ml IV ONCE Sodium Chloride 0.9% [Sodium Chloride] 1,000 ml MEDS 05/30/17 22:34 Active IV BOLUS Medications Generic Name Dose Route Start Last Admin Trade Name Freq PRN Reason Stop Dose Admin Hydromorphone HCl 1 mg 05/30/17 22:34 Dilaudid 1 Mg/Ml Syringe IVP Q1HR PRN MODERATE PAIN Promethazine HCl 12.5 mg/ 50.5 mls @ 75 mls/hr 05/30/17 22:35 Sodium Chloride IV 05/30/17 23:15 ONCE STA Sodium Chloride 1,000 mls @ 1,000 mls/hr 05/30/17 22:34 Sodium Chloride IV 05/30/17 23:33 BOLUS STA Sodium Chloride 1 syr 05/30/17 22:34 Saline Flush IVF PRN PRN To flush IV Vital Signs: Temp Pulse Resp BP Pulse Ox 05/30/17 21:28 98.5 F 119 H 20 118/86 98 Departure - Departure Time of Disposition: 22:40 Disposition: HOME SELF-CARE Discharge Problem: Headache Qualifiers: Headache type: unspecified Headache chronicity pattern: acute headache Intractability: not intractable Qualified Code(s): R51 - Headache Vomiting Qualifiers: Vomiting type: unspecified Vomiting Intractability: intractable Nausea presence : with nausea Qualified Code(s): R11.2 - Nausea with vomiting, unspecified Condition: Good Pt referred to PMD for follow-up: Yes IPMP verified?: No Additional Instructions: f/u with pcp Allergies/Adverse Reactions: Allergies codeine Allergy (Verified 05/19/17 22:16) NAUSEA/SWELLING sulfamethoxazole [From Bactrim] Allergy (Verified 05/19/17 22:16) Unknown UNKNOWN trimethoprim [From Bactrim] Allergy (Verified 05/19/17 22:16) Unknown UNKNOWN aspirin Adverse Reaction (Verified 05/19/17 22:16) states can take a baby aspirin, but a regular one makes him nauseated. levothyroxine Adverse Reaction (Verified 05/30/17 21:38) STATES HAD EXTREME WEIGHT LOSS FOR THE 2 DAYS HE TOOK IT . 20 POUNDS IN 2 DAYS tramadol HCl [From Ultram] Adverse Reaction (Verified 05/19/17 22:16) Vomiting Home Medications: Ambulatory Orders Lisinopril [Zestril] 10 mg PO DAILY 06/08/13 Lansoprazole [Prevacid] 30 mg PO DAILY 06/27/14 Glyburide 10 mg PO DAILY 09/26/15 Insulin Glargine,Hum.rec.anlog [Lantus Solostar] 40 unit SQ BEDTIME 09/26/15 Potassium 99 mg PO DAILY 10/15/16 Folic Acid 1 mg PO DAILY 12/22/16 Oxycodone-Acetaminophen 10-325 [Percocet 10-325] 10 mg PO Q4-6H PRN 01/19/17 Prochlorperazine Maleate [Compazine] 10 mg PO Q8H PRN 02/16/17 Rivaroxaban [Xarelto] 10 mg PO DAILY 04/18/17 Ondansetron [Zofran Odt] 4 mg PO Q8H PRN 05/19/17 Promethazine HCl [Phenergan Supp] 12.5 mg RC DIRECTED PRN 05/30/17 Disposition Discussed With: Patient, Family
[2017-05-30] MEDS ORDERED: PHENERGAN 25 MG/ML VIAL ONE (23:16)
[2017-05-30] MEDS ORDERED: DILAUDID 1 MG/ML SYRINGE ONE (23:17)
[2017-05-30] MEDS: DILAUDID 1 MG/ML SYRINGE IVP PRN (23:20)
[2017-05-31] MEDS ORDERED: DILAUDID 1 MG/ML SYRINGE ONE (00:24)
[2017-05-31] MEDS: DILAUDID 1 MG/ML SYRINGE IVP PRN (00:26)
== END 2017-05-31 00:59 | disposition home or self-care (01) ==
LOC: ED 21:27
DX: R51 Headache (principal); R11.2 Nausea with vomiting, unspecified; R10.9 Unspecified abdominal pain; E11.9 Type 2 diabetes mellitus without complications
CPT/HCPCS: 96361; 96365; 96375; 96376; 99282

== ENCOUNTER 2017-06-06 21:40 | Emergency (ER) ==
[2017-06-06 21:45] VITALS: BP 116/70; TEMP 97.2; BMI 23.1
[2017-06-06] MEDS ORDERED: ZOFRAN 4 MG/2 ML IM STA (22:14)
--- NOTE | 2017-06-06 22:17 | ED.PDOC ---
General ED Provider: Dr. JAMIL BELLE Chief Complaint: Headache Stated Complaint: Patient having nausea, no vomiting, says hurting in the head, 10/10 but watching Movie in phone in dark room. not in any discomfort Time Seen by Physician: 22:15 Mode of Arrival: Walk-In Information Source: Patient Primary Care Provider: JACK POSADA Nursing and Triage Documentation Reviewed and Agree: Yes Reviewed sepsis parameters & appropriate labs ordered?: No System Inflammatory Response Syndrome: Not Applicable Sepsis Protocol: For patient's 13 years and over: Temp is 96.8 and below OR 101 and greater Pulse >90 BPM Resp >20/minute Acutely Altered Mental Status Are patient's symptoms suggestive of a new infection, such as: -Pneumonia -Skin, Soft Tissue -Endocarditis -UTI -Bone, Joint Infection -Implantable Device -Acute Abdominal Infection -Wound Infection -Meningitis -Blood Stream Catheter Infection -Unknown GI Complaint Exam - Vomiting/Diarrhea Complaint/Exam Symptoms Are: Resolved Episodes of Vomiting over last 24 Hours: 0 Initial Severity: Moderate Current Severity: Mild Character of Vomiting: Reports: Non-bilious Aggravating: Reports: Liquids Alleviating: Reports: None Related History: Reports: Similar episode Non-GI Risk Factors: Reports: None Surgical Obstruction Risk Factors: Reports: None Related Surgical History: Reports: None Abdominal Findings: Present: None Differential Diagnoses: Other (chemo indused nausea.) Review of Systems - Review Of Systems Constitutional: Reports: No symptoms Eyes: Reports: No symptoms Ears, Nose, Mouth, Throat: Reports: No symptoms Respiratory: Reports: No symptoms Cardiac: Reports: No symptoms GI: Reports: Nausea : Reports: No symptoms Musculoskeletal: Reports: No symptoms Skin: Reports: No symptoms Neurological: Reports: No symptoms Endocrine: Reports: No symptoms Hematologic/Lymphatic: Reports: No symptoms All Other Systems: Reviewed and Negative Past Medical History - Past Medical History Previously Healthy: No Endocrine: Reports: DM 2 Cardiovascular: Reports: None Respiratory: Reports: None Hematological: Reports: None Gastrointestinal: Reports: GERD Genitourinary: Reports: None Neuro/Psych: Reports: None Musculoskeletal: Reports: Other (LEFT SHOULDER PAIN WITH MOTION) 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 ) - Surgical History General Surgical History: Reports: Appendectomy - Family History Family History: Reports: None - Social History Smoking Status: Former smoker Hx Substance Use: No Alcohol Screening: None - Immunizations Tetanus Shot up to Date: Yes Physical Exam - Physical Exam Appearance: Well-appearing, No pain distress, Well-nourished Eyes: WILLIAM, EOMI, Conjunctiva clear ENT: Ears normal, Nose normal, Oropharynx normal Respiratory: Airway patent, Breath sounds clear, Breath sounds equal, Respirations nonlabored Cardiovascular: RRR, Pulses normal, No rub, No murmur GI/: Soft, Nontender, No masses, Bowel sounds normal, No Organomegaly Musculoskeletal: Normal strength, ROM intact, No edema, No calf tenderness Skin: Warm, Dry, Normal color Neurological: Sensation intact, Motor intact, Reflexes intact, Cranial nerves intact, Alert, Oriented Psychiatric: Affect appropriate, Mood appropriate Critical Care Note - Critical Care Note Total Time (mins): 30 Course - Course Hematology/Chemistry: 06/06/17 22:24 06/06/17 22:24 Orders, Labs, Meds: Lab Review 06/06/17 06/06/17 22:24 22:24 WBC 2.28 L RBC 2.89 L Hgb 9.6 L Hct 27.9 L MCV 96.5 H MCH 33.2 H MCHC 34.4 RDW Coeff of Melanie 15.2 H Plt Count 219 Immature Gran % (Auto) 0.4 Neut % (Auto) 55.8 Lymph % (Auto) 29.8 Gooding % (Auto) 11.8 H Eos % (Auto) 0.9 Baso % (Auto) 1.3 Immature Gran # (Auto) 0.0 Neut # (Auto) 1.3 L Lymph # (Auto) 0.7 Gooding # (Auto) 0.3 L Eos # (Auto) 0.0 Baso # (Auto) 0.0 Sodium 138 Potassium 3.4 L Chloride 101 Carbon Dioxide 26 Anion Gap 14.4 BUN 11 Creatinine 0.78 Estimated GFR (MDRD) 108.00 BUN/Creatinine Ratio 14.10 Glucose 238 H Calcium 9.3 Total Bilirubin 0.5 AST 17 ALT 11 L Alkaline Phosphatase 61 Total Protein 6.4 Albumin 3.8 Globulin 2.6 Albumin/Globulin Ratio 1.46 Orders Category Date Time Status CBC W/ AUTO DIFF Stat LAB 06/06/17 22:24 Completed COMPREHENSIVE METABOLIC PANEL Stat LAB 06/06/17 22:24 Completed Hydromorphone HCl/Pf [Dilaudid 2 mg/ml Syringe] MEDS 06/06/17 23:01 Discontinued 2 mg .ROUTE .STK-MED ONE Morphine Sulfate [Morphine 2 mg/ml Syringe] MEDS 06/06/17 23:02 Discontinued 2 mg IM ONCE STA Ondansetron HCl/Pf [Zofran 4 mg/2 ml] MEDS 06/06/17 22:14 Discontinued 4 mg IM ONCE STA Medications Discontinued Medications Generic Name Dose Route Start Last Admin Trade Name Kashif PRN Reason Stop Dose Admin Morphine Sulfate 2 mg 06/06/17 23:02 06/06/17 23:06 Morphine 2 Mg/Ml Syringe IM 06/06/17 23:03 2 mg ONCE STA Administration Ondansetron HCl 4 mg 06/06/17 22:14 06/06/17 22:24 Zofran 4 Mg/2 Ml IM 06/06/17 22:15 4 mg ONCE STA Administration Vital Signs: Temp Pulse Resp BP Pulse Ox 06/06/17 21:40 97.2 F L 91 H 16 116/70 99 Departure - Departure Time of Disposition: 22:17 Disposition: HOME SELF-CARE Discharge Problem: Headache, Chemotherapy-induced nausea Instructions: Chemo Induced Nausea and Vomiting (ED) Condition: Stable Pt referred to PMD for follow-up: Yes IPMP verified?: No Additional Instructions: Increase Hydration continue home medications f./u with PMD Allergies/Adverse Reactions: Allergies codeine Allergy (Verified 05/19/17 22:16) NAUSEA/SWELLING sulfamethoxazole [From Bactrim] Allergy (Verified 05/19/17 22:16) Unknown UNKNOWN trimethoprim [From Bactrim] Allergy (Verified 05/19/17 22:16) Unknown UNKNOWN aspirin Adverse Reaction (Verified 05/19/17 22:16) states can take a baby aspirin, but a regular one makes him nauseated. levothyroxine Adverse Reaction (Verified 05/30/17 21:38) STATES HAD EXTREME WEIGHT LOSS FOR THE 2 DAYS HE TOOK IT . 20 POUNDS IN 2 DAYS tramadol HCl [From Ultram] Adverse Reaction (Verified 05/19/17 22:16) Vomiting Home Medications: Ambulatory Orders Lisinopril [Zestril] 10 mg PO DAILY 06/08/13 Lansoprazole [Prevacid] 30 mg PO DAILY 06/27/14 Glyburide 10 mg PO DAILY 09/26/15 Insulin Glargine,Hum.rec.anlog [Lantus Solostar] 40 unit SQ BEDTIME 09/26/15 Potassium 99 mg PO DAILY 10/15/16 Folic Acid 1 mg PO DAILY 12/22/16 Oxycodone-Acetaminophen 10-325 [Percocet 10-325] 10 mg PO Q4-6H PRN 01/19/17 Prochlorperazine Maleate [Compazine] 10 mg PO Q8H PRN 02/16/17 Rivaroxaban [Xarelto] 10 mg PO DAILY 04/18/17 Ondansetron [Zofran Odt] 4 mg PO Q8H PRN 05/19/17 Promethazine HCl [Phenergan Supp] 12.5 mg RC DIRECTED PRN 05/30/17 Disposition Discussed With: Patient, Family
[2017-06-06] MEDS ORDERED: DILAUDID 2 MG/ML SYRINGE ONE (23:01)
[2017-06-06] MEDS ORDERED: MORPHINE 2 MG/ML SYRINGE IM STA (23:02)
== END 2017-06-06 23:11 | disposition home or self-care (01) ==
LOC: ED 21:40
DX: R51 Headache (principal); R11.0 Nausea; T45.1X5A Adverse effect of antineoplastic and immunosuppressive drugs, initial encounter
CPT/HCPCS: 36415; 80053; 85025; 96372; 99283

== ENCOUNTER 2017-06-14 22:28 | Emergency (ER) ==
[2017-06-14 22:38] VITALS: BP 113/78; TEMP 98.1; BMI 23.8
--- NOTE | 2017-06-14 22:52 | ED.PDOC ---
General ED Provider: Dr. CHRISTOPHER GONSALEZ Chief Complaint: Headache Stated Complaint: States that he gets headache post Chemo. Has some Nausea. Last chemo treatment was on 06/04/17. Says usually has delayed reactions from Chemo. Time Seen by Physician: 23:02 Mode of Arrival: Walk-In Information Source: Patient Primary Care Provider: JACK POSADA Nursing and Triage Documentation Reviewed and Agree: Yes Reviewed sepsis parameters & appropriate labs ordered?: No System Inflammatory Response Syndrome: Not Applicable Sepsis Protocol: For patient's 13 years and over: Temp is 96.8 and below OR 101 and greater Pulse >90 BPM Resp >20/minute Acutely Altered Mental Status Are patient's symptoms suggestive of a new infection, such as: -Pneumonia -Skin, Soft Tissue -Endocarditis -UTI -Bone, Joint Infection -Implantable Device -Acute Abdominal Infection -Wound Infection -Meningitis -Blood Stream Catheter Infection -Unknown System Inflammatory Response Syndrome: Not Applicable Review of Systems - Review Of Systems Constitutional: Reports: No symptoms Eyes: Reports: Photophobia GI: Reports: Nausea, Poor appetite, Vomiting Neurological: Reports: Headache All Other Systems: Reviewed and Negative Past Medical History - Past Medical History Previously Healthy: No Endocrine: Reports: DM 2 Cardiovascular: Reports: None Respiratory: Reports: None Hematological: Reports: None Gastrointestinal: Reports: GERD Genitourinary: Reports: None Neuro/Psych: Reports: None Musculoskeletal: Reports: Other (LEFT SHOULDER PAIN WITH MOTION) 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 ) - Surgical History General Surgical History: Reports: Appendectomy - Family History Family History: Reports: None - Social History Smoking Status: Former smoker Hx Substance Use: Yes (marijuana) Alcohol Screening: None - Immunizations Tetanus Shot up to Date: Yes Physical Exam - Physical Exam Appearance: Ill-appearing Ill-appearing: Moderate Pain Distress: Severe Neck: Supple Respiratory: Airway patent Cardiovascular: RRR, Pulses normal, No rub, No murmur GI/: Soft, Nontender, No masses, Bowel sounds normal, No Organomegaly Musculoskeletal: Normal strength, ROM intact, No edema, No calf tenderness Skin: Warm Psychiatric: Anxious Re-Evaluation - Re-Evaluation Time of Re-Evaluation: 00:30 Status: Improved Vital Signs Stable: Yes Pain Level: mild Appearance: NAD Critical Care Note - Critical Care Note Total Time (mins): 0 Course - Course Orders, Labs, Meds: Orders Category Date Time Status ED IV/MEDIPORT/POWERPORT .ONCE EMERGENCY 06/14/17 23:10 Active 0.9 % Sodium Chloride [Saline Flush] MEDS 06/14/17 23:10 Discontinued 1 syr IVF PRN PRN Hydromorphone HCl [Dilaudid 1 mg/ml Syringe] MEDS 06/14/17 23:10 Discontinued 1 mg IVP ONCE STA Ondansetron HCl/Pf [Zofran 4 mg/2 ml] MEDS 06/14/17 23:10 Discontinued 4 mg IVP ONCE STA Ringers Lactated Solution [Lactated Ringers] 1,000 ml MEDS 06/14/17 23:10 Discontinued IV BOLUS Medications Discontinued Medications Generic Name Dose Route Start Last Admin Trade Name Freq PRN Reason Stop Dose Admin Hydromorphone HCl 1 mg 06/14/17 23:10 06/14/17 23:36 Dilaudid 1 Mg/Ml Syringe IVP 06/14/17 23:11 1 mg ONCE STA Administration Lactated Ringer's 1,000 mls @ 1,000 mls/hr 06/14/17 23:10 06/14/17 23:31 Lactated Ringers IV 06/15/17 00:09 1,000 mls/hr BOLUS STA Administration Ondansetron HCl 4 mg 06/14/17 23:10 06/14/17 23:29 Zofran 4 Mg/2 Ml IVP 06/14/17 23:11 4 mg ONCE STA Administration Sodium Chloride 1 syr 06/14/17 23:10 06/14/17 23:29 Saline Flush IVF 1 syr PRN PRN Administration To flush IV Vital Signs: Temp Pulse Resp BP Pulse Ox 06/14/17 22:29 98.1 F 89 20 113/78 99 Departure - Departure Time of Disposition: 00:31 Disposition: HOME SELF-CARE Discharge Problem: Headache Instructions: Migraine Headache (ED) Condition: Stable Pt referred to PMD for follow-up: Yes IPMP verified?: No Additional Instructions: Continue home pain medications and Nausea medications Follow up with PCP in 3 days Allergies/Adverse Reactions: Allergies codeine Allergy (Verified 06/14/17 22:36) NAUSEA/SWELLING sulfamethoxazole [From Bactrim] Allergy (Verified 06/14/17 22:36) Unknown UNKNOWN trimethoprim [From Bactrim] Allergy (Verified 06/14/17 22:36) Unknown UNKNOWN aspirin Adverse Reaction (Verified 06/14/17 22:36) states can take a baby aspirin, but a regular one makes him nauseated. levothyroxine Adverse Reaction (Verified 06/14/17 22:36) STATES HAD EXTREME WEIGHT LOSS FOR THE 2 DAYS HE TOOK IT . 20 POUNDS IN 2 DAYS tramadol HCl [From Ultra] Adverse Reaction (Verified 06/14/17 22:36) Vomiting Home Medications: Ambulatory Orders Lisinopril [Zestril] 10 mg PO DAILY 06/08/13 Lansoprazole [Prevacid] 30 mg PO DAILY 06/27/14 Glyburide 10 mg PO DAILY 09/26/15 Insulin Glargine,Hum.rec.anlog [Lantus Solostar] 40 unit SQ BEDTIME 09/26/15 Potassium 99 mg PO DAILY 10/15/16 Folic Acid 1 mg PO DAILY 12/22/16 Oxycodone-Acetaminophen 10-325 [Percocet 10-325] 10 mg PO Q4-6H PRN 01/19/17 Prochlorperazine Maleate [Compazine] 10 mg PO Q8H PRN 02/16/17 Rivaroxaban [Xarelto] 10 mg PO DAILY 04/18/17 Ondansetron [Zofran Odt] 4 mg PO Q8H PRN 05/19/17 Promethazine HCl [Phenergan Supp] 12.5 mg RC DIRECTED PRN 05/30/17 Disposition Discussed With: Patient
[2017-06-14] MEDS ORDERED: DILAUDID 1 MG/ML SYRINGE IVP STA (23:10)
[2017-06-14] MEDS ORDERED: ZOFRAN 4 MG/2 ML IVP STA (23:10)
[2017-06-14] MEDS ORDERED: LACTATED RINGERS 1,000 ML IV STA (23:10)
== END 2017-06-15 00:40 | disposition home or self-care (01) ==
LOC: ED 22:28
DX: R51 Headache (principal); R11.2 Nausea with vomiting, unspecified; C34.90 Malignant neoplasm of unspecified part of unspecified bronchus or lung; C79.31 Secondary malignant neoplasm of brain; T45.1X5A Adverse effect of antineoplastic and immunosuppressive drugs, initial encounter
CPT/HCPCS: 96361; 96374; 96375; 99283

== ENCOUNTER 2017-07-05 22:31 | Emergency (ER) ==
[2017-07-05 22:44] VITALS: BP 102/72; TEMP 97.9; BMI 24.4
[2017-07-05] MEDS ORDERED: DILAUDID IM STA (23:16)
[2017-07-05] MEDS ORDERED: PHENERGAN 25 MG/ML VIAL IM STA (23:16)
--- NOTE | 2017-07-05 23:59 | ED.PDOC ---
General ED Provider: Dr. CHRISTOPHER GONSALEZ Chief Complaint: Nausea/Vomiting Stated Complaint: Patient is well known to the ER. he has a history of lung cancer with brain mets. He gets chemotherapy the last was two weeks ago. He complains of vomiting x 2 day and severe headaches which he rates as 10/10 and has been taking his oxycodone. Time Seen by Physician: 22:45 Mode of Arrival: Walk-In Information Source: Patient Exam Limitations: No limitations Primary Care Provider: JACK POSADA Nursing and Triage Documentation Reviewed and Agree: Yes Reviewed sepsis parameters & appropriate labs ordered?: No System Inflammatory Response Syndrome: Not Applicable Sepsis Protocol: For patient's 13 years and over: Temp is 96.8 and below OR 101 and greater Pulse >90 BPM Resp >20/minute Acutely Altered Mental Status Are patient's symptoms suggestive of a new infection, such as: -Pneumonia -Skin, Soft Tissue -Endocarditis -UTI -Bone, Joint Infection -Implantable Device -Acute Abdominal Infection -Wound Infection -Meningitis -Blood Stream Catheter Infection -Unknown System Inflammatory Response Syndrome: Not Applicable Review of Systems - Review Of Systems Constitutional: Reports: No symptoms Eyes: Reports: No symptoms Ears, Nose, Mouth, Throat: Reports: No symptoms Respiratory: Reports: No symptoms Cardiac: Reports: No symptoms GI: Reports: Nausea, Vomiting : Reports: No symptoms Musculoskeletal: Reports: No symptoms Skin: Reports: No symptoms Neurological: Reports: Anxiety, Headache Endocrine: Reports: No symptoms Hematologic/Lymphatic: Reports: No symptoms All Other Systems: Reviewed and Negative Past Medical History - Past Medical History Previously Healthy: No Endocrine: Reports: DM 2 Cardiovascular: Reports: None Respiratory: Reports: None Hematological: Reports: None Gastrointestinal: Reports: GERD Genitourinary: Reports: None Neuro/Psych: Reports: None Musculoskeletal: Reports: Other (LEFT SHOULDER PAIN WITH MOTION) 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 ) - Surgical History General Surgical History: Reports: Appendectomy - Family History Family History: Reports: None - Social History Smoking Status: Former smoker Hx Substance Use: Yes (OCCASIONAL MARIJUANA) Alcohol Screening: Occasionally - Immunizations Tetanus Shot up to Date: Yes Physical Exam - Physical Exam Appearance: Ill-appearing Ill-appearing: Mild Pain Distress: Severe Neck: Supple Respiratory: Airway patent, Breath sounds clear, Breath sounds equal, Respirations nonlabored Cardiovascular: RRR, Pulses normal, No rub, No murmur GI/: Soft, Nontender Skin: Warm, Dry Neurological: Alert, Oriented Psychiatric: Anxious Re-Evaluation - Re-Evaluation Time of Re-Evaluation: 23:59 Status: Improved Vital Signs Stable: Yes Pain Level: better. Critical Care Note - Critical Care Note Total Time (mins): 0 Course - Course Orders, Labs, Meds: Orders Category Date Time Status Hydromorphone HCl [Dilaudid] MEDS 07/05/17 23:16 Discontinued 0.5 mg IM ONCE STA Promethazine HCl [Phenergan 25 mg/ml Vial] MEDS 07/05/17 23:16 Discontinued 25 mg IM ONCE STA Medications Discontinued Medications Generic Name Dose Route Start Last Admin Trade Name Freq PRN Reason Stop Dose Admin Hydromorphone HCl 0.5 mg 07/05/17 23:16 07/05/17 23:44 Dilaudid IM 07/05/17 23:17 0.5 mg ONCE STA Administration Promethazine HCl 25 mg 07/05/17 23:16 07/05/17 23:43 Phenergan 25 Mg/Ml Vial IM 07/05/17 23:17 25 mg ONCE STA Administration Vital Signs: Temp Pulse Resp BP Pulse Ox 07/05/17 22:33 97.9 F 88 18 102/72 99 Departure - Departure Time of Disposition: 23:59 Disposition: HOME SELF-CARE Discharge Problem: Nausea, Vomiting Chronic headaches Qualifiers: Headache type: tension-type Intractability: not intractable Qualified Code(s): G44.229 - Chronic tension-type headache, not intractable Instructions: Acute Nausea and Vomiting (ED), General Headache (ED) Condition: Stable Pt referred to PMD for follow-up: Yes IPMP verified?: No Additional Instructions: continue home medications Follow up with PCP in 3 days. Allergies/Adverse Reactions: Allergies codeine Allergy (Verified 07/05/17 22:38) NAUSEA/SWELLING sulfamethoxazole [From Bactrim] Allergy (Verified 07/05/17 22:38) Unknown UNKNOWN trimethoprim [From Bactrim] Allergy (Verified 07/05/17 22:38) Unknown UNKNOWN aspirin Adverse Reaction (Verified 07/05/17 22:38) states can take a baby aspirin, but a regular one makes him nauseated. levothyroxine Adverse Reaction (Verified 07/05/17 22:38) STATES HAD EXTREME WEIGHT LOSS FOR THE 2 DAYS HE TOOK IT . 20 POUNDS IN 2 DAYS tramadol HCl [From [facility]] Adverse Reaction (Verified 07/05/17 22:38) Vomiting Home Medications: Ambulatory Orders Lisinopril [Zestril] 10 mg PO DAILY 06/08/13 Lansoprazole [Prevacid] 30 mg PO DAILY 06/27/14 Glyburide 10 mg PO DAILY 09/26/15 Insulin Glargine,Hum.rec.anlog [Lantus Solostar] 40 unit SQ BEDTIME 09/26/15 Potassium 99 mg PO DAILY 10/15/16 Folic Acid 1 mg PO DAILY 12/22/16 Oxycodone-Acetaminophen 10-325 [Percocet 10-325] 10 mg PO Q4-6H PRN 01/19/17 Prochlorperazine Maleate [Compazine] 10 mg PO Q8H PRN 02/16/17 Rivaroxaban [Xarelto] 10 mg PO DAILY 04/18/17 Ondansetron [Zofran Odt] 4 mg PO Q8H PRN 05/19/17 Promethazine HCl [Phenergan Supp] 12.5 mg RC DIRECTED PRN 05/30/17
== END 2017-07-06 00:27 | disposition home or self-care (01) ==
LOC: ED 22:31
DX: G44.229 Chronic tension-type headache, not intractable (principal); R11.2 Nausea with vomiting, unspecified; C34.90 Malignant neoplasm of unspecified part of unspecified bronchus or lung; C79.31 Secondary malignant neoplasm of brain
CPT/HCPCS: 96372; 99282

== ENCOUNTER 2017-07-20 22:24 | Emergency (ER) ==
[2017-07-20 22:37] VITALS: BP 124/83; TEMP 98.1; BMI 24.3
[2017-07-20] MEDS ORDERED: SODIUM CHLORIDE 1,000 ML IV STA (22:38)
[2017-07-20] MEDS ORDERED: PHENERGAN 25 MG/ML VIAL 25 MG in SODIUM CHLORIDE 50 ML IV STA (22:39)
--- NOTE | 2017-07-20 22:54 | ED.PDOC ---
General ED Provider: Dr. CAMILA GUILLERMO-ER Chief Complaint: Nausea/Vomiting Stated Complaint: i had chemo this week and now have vomiting and diarrhea and murcia as i always do after chemo Time Seen by Physician: 22:53 Mode of Arrival: Walk-In Information Source: Patient, Family Exam Limitations: No limitations Primary Care Provider: JACK YUEN Nursing and Triage Documentation Reviewed and Agree: Yes Reviewed sepsis parameters & appropriate labs ordered?: Yes System Inflammatory Response Syndrome: Not Applicable Sepsis Protocol: For patient's 13 years and over: Temp is 96.8 and below OR 101 and greater Pulse >90 BPM Resp >20/minute Acutely Altered Mental Status Are patient's symptoms suggestive of a new infection, such as: -Pneumonia -Skin, Soft Tissue -Endocarditis -UTI -Bone, Joint Infection -Implantable Device -Acute Abdominal Infection -Wound Infection -Meningitis -Blood Stream Catheter Infection -Unknown GI Complaint Exam - Vomiting/Diarrhea Complaint/Exam Onset/Duration: 24 hrs Symptoms Are: Still present Episodes of Vomiting over last 24 Hours: 6 Episodes of Diarrhea Over Last 24 Hours: 6 Initial Severity: Mild Current Severity: Moderate Character of Vomiting: Reports: Non-bilious Character of Diarrhea: Reports: Watery Aggravating: Reports: None Alleviating: Reports: None Associated Signs and Symptoms: Denies: Dizziness, Light-headedness, Melena, Hematemesis, Fever, Abdominal pain, Cramping Differential Diagnoses: Other Review of Systems - Review Of Systems Constitutional: Reports: No symptoms Eyes: Reports: No symptoms Ears, Nose, Mouth, Throat: Reports: No symptoms Respiratory: Reports: No symptoms Cardiac: Reports: No symptoms GI: Reports: Nausea, Vomiting : Reports: No symptoms Musculoskeletal: Reports: No symptoms Skin: Reports: No symptoms Neurological: Reports: Headache Endocrine: Reports: No symptoms Hematologic/Lymphatic: Reports: No symptoms All Other Systems: Reviewed and Negative Past Medical History - Past Medical History Previously Healthy: No Endocrine: Reports: DM 2 Cardiovascular: Reports: None Respiratory: Reports: None Hematological: Reports: None Gastrointestinal: Reports: GERD Genitourinary: Reports: None Neuro/Psych: Reports: None Musculoskeletal: Reports: Other (LEFT SHOULDER PAIN WITH MOTION) 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 ) - Surgical History General Surgical History: Reports: Appendectomy - Family History Family History: Reports: None - Social History Smoking Status: Former smoker Hx Substance Use: Yes (OCCASIONAL MARIJUANA) Alcohol Screening: Occasionally - Immunizations Tetanus Shot up to Date: Yes Physical Exam - Physical Exam Appearance: Well-appearing, No pain distress, Well-nourished Pain Distress: Mild Eyes: WILLIAM ENT: Ears normal, Nose normal, Oropharynx normal Neck: Supple Respiratory: Airway patent Cardiovascular: RRR, Pulses normal, No rub, No murmur GI/: Soft Musculoskeletal: Normal strength, ROM intact, No edema, No calf tenderness Skin: Warm Neurological: Alert, Oriented Psychiatric: Affect appropriate Critical Care Note - Critical Care Note Total Time (mins): 0 Course - Course Hematology/Chemistry: 07/20/17 22:45 Orders, Labs, Meds: Lab Review 07/20/17 22:45 Sodium 133 L Potassium 3.3 L Chloride 97 L Carbon Dioxide 21 Anion Gap 18.3 BUN 9 Creatinine 0.84 Estimated GFR (MDRD) 99.00 BUN/Creatinine Ratio 10.71 Glucose 318 H Calcium 9.5 Orders Category Date Time Status ED IV/MEDIPORT/POWERPORT .ONCE EMERGENCY 07/20/17 22:38 Active BMP [BASIC METABOLIC PANEL] Stat LAB 07/20/17 22:45 Completed 0.9 % Sodium Chloride [Saline Flush] MEDS 07/20/17 22:38 Discontinued 1 syr IVF PRN PRN Hydromorphone HCl [Dilaudid] MEDS 07/20/17 23:23 Discontinued 1 mg .ROUTE .STK-MED ONE Hydromorphone HCl [Dilaudid] MEDS 07/21/17 01:05 Discontinued 1 mg .ROUTE .STK-MED ONE Hydromorphone HCl [Dilaudid] MEDS 07/20/17 22:38 Discontinued 1 mg IVP Q1-2H PRN Potassium Chloride [K-Dur] MEDS 07/21/17 00:14 Discontinued 40 meq .ROUTE .STK-MED ONE Potassium Chloride [K-Dur] MEDS 07/21/17 00:11 Discontinued 40 meq PO ONCE STA Promethazine HCl [Phenergan 25 mg/ml Vial] MEDS 07/20/17 23:14 Discontinued 25 mg .ROUTE .STK-MED ONE Promethazine HCl [Phenergan 25 mg/ml Vial] 25 mg MEDS 07/20/17 22:39 Discontinued 0.9 % Sodium Chloride [Sodium Chloride] 50 ml IV ONCE Sodium Chloride 0.9% [Sodium Chloride] 1,000 ml MEDS 07/20/17 22:38 Discontinued IV BOLUS Medications Discontinued Medications Generic Name Dose Route Start Last Admin Trade Name Freq PRN Reason Stop Dose Admin Hydromorphone HCl 1 mg 07/20/17 22:38 07/21/17 01:07 Dilaudid IVP 1 mg Q1-2H PRN Administration MODERATE PAIN Promethazine HCl 25 mg/ Sodium 51 mls @ 75 mls/hr 07/20/17 22:39 07/20/17 23: 27 Chloride IV 07/20/17 23:19 75 mls/hr ONCE STA Administration Sodium Chloride 1,000 mls @ 1,000 mls/hr 07/20/17 22:38 07/20/17 23:25 Sodium Chloride IV 07/20/17 23:37 1,000 mls/hr BOLUS STA Administration Potassium Chloride 40 meq 07/21/17 00:11 07/21/17 00:17 K-Dur PO 07/21/17 00:12 40 meq ONCE STA Administration Sodium Chloride 1 syr 07/20/17 22:38 07/20/17 23:31 Saline Flush IVF 1 syr PRN PRN Administration To flush IV Vital Signs: Temp Pulse Resp BP Pulse Ox 07/20/17 22:25 98.1 F 107 H 20 124/83 98 Departure - Departure Time of Disposition: 00:12 Disposition: HOME SELF-CARE Discharge Problem: Nausea, Vomiting Instructions: Chemo Induced Nausea and Vomiting (ED) Condition: Good Pt referred to PMD for follow-up: Yes IPMP verified?: No Additional Instructions: f/u [facility] dr yuen Allergies/Adverse Reactions: Allergies codeine Allergy (Verified 07/20/17 22:32) NAUSEA/SWELLING sulfamethoxazole [From Bactrim] Allergy (Verified 07/20/17 22:32) Unknown UNKNOWN trimethoprim [From Bactrim] Allergy (Verified 07/20/17 22:32) Unknown UNKNOWN aspirin Adverse Reaction (Verified 07/20/17 22:32) states can take a baby aspirin, but a regular one makes him nauseated. levofloxacin [From Levaquin] Adverse Reaction (Verified 07/20/17 22:32) Vomiting levothyroxine Adverse Reaction (Verified 07/20/17 22:32) STATES HAD EXTREME WEIGHT LOSS FOR THE 2 DAYS HE TOOK IT . 20 POUNDS IN 2 DAYS tramadol HCl [From [facility]] Adverse Reaction (Verified 07/20/17 22:32) Vomiting Home Medications: Ambulatory Orders Lisinopril [Zestril] 10 mg PO DAILY 06/08/13 Lansoprazole [Prevacid] 30 mg PO DAILY 06/27/14 Glyburide 10 mg PO DAILY 09/26/15 Insulin Glargine,Hum.rec.anlog [Lantus Solostar] 40 unit SQ BEDTIME 09/26/15 Potassium 99 mg PO DAILY 10/15/16 Folic Acid 1 mg PO DAILY 12/22/16 Oxycodone-Acetaminophen 10-325 [Percocet 10-325] 10 mg PO Q4-6H PRN 01/19/17 Prochlorperazine Maleate [Compazine] 10 mg PO Q8H PRN 02/16/17 Rivaroxaban [Xarelto] 10 mg PO DAILY 04/18/17 Ondansetron [Zofran Odt] 4 mg PO Q8H PRN 05/19/17 Promethazine HCl [Phenergan Supp] 12.5 mg RC DIRECTED PRN 05/30/17 Cyanocobalamin (Vitamin B-12) [Vitamin B12] 5,000 mcg PO DAILY 07/20/17 Pembrolizumab [Keytruda] 100 mg IV DIRECTED 07/20/17 Disposition Discussed With: Patient
[2017-07-20] MEDS ORDERED: PHENERGAN 25 MG/ML VIAL ONE (23:14)
[2017-07-20] MEDS ORDERED: DILAUDID ONE (23:23)
[2017-07-20] MEDS: DILAUDID IVP PRN (23:28)
[2017-07-21] MEDS ORDERED: K-DUR PO STA (00:11)
[2017-07-21] MEDS ORDERED: K-DUR ONE (00:14)
[2017-07-21] MEDS ORDERED: DILAUDID ONE (01:05)
[2017-07-21] MEDS: DILAUDID IVP PRN (01:07)
== END 2017-07-21 01:15 | disposition home or self-care (01) ==
LOC: ED 22:24
DX: T45.1X5A Adverse effect of antineoplastic and immunosuppressive drugs, initial encounter (principal); R11.2 Nausea with vomiting, unspecified; R19.7 Diarrhea, unspecified; C34.90 Malignant neoplasm of unspecified part of unspecified bronchus or lung; C79.31 Secondary malignant neoplasm of brain
CPT/HCPCS: 36415; 80048; 96361; 96365; 96375; 96376; 99283

== ENCOUNTER 2017-07-28 21:41 | Emergency (ER) ==
[2017-07-28 21:48] VITALS: BP 115/78; TEMP 97.3; BMI 23.8
--- NOTE | 2017-07-28 22:22 | ED.PDOC ---
General ED Provider: Dr. CHRISTOPHER GONSALEZ Chief Complaint: Headache Stated Complaint: Pateint is a 46 year old male who comes to the ER with chornic headaches due to cancer and chemotherapy. Today he had one emesis episode and headache. Did not take nausea medications or pain medications at home He thought we would just give him some shots. States he feels sluggish and had some diarrhea. Time Seen by Physician: 22:20 Mode of Arrival: Walk-In Information Source: Patient Primary Care Provider: JACK POSADA Nursing and Triage Documentation Reviewed and Agree: Yes Reviewed sepsis parameters & appropriate labs ordered?: No System Inflammatory Response Syndrome: Not Applicable Sepsis Protocol: For patient's 13 years and over: Temp is 96.8 and below OR 101 and greater Pulse >90 BPM Resp >20/minute Acutely Altered Mental Status Are patient's symptoms suggestive of a new infection, such as: -Pneumonia -Skin, Soft Tissue -Endocarditis -UTI -Bone, Joint Infection -Implantable Device -Acute Abdominal Infection -Wound Infection -Meningitis -Blood Stream Catheter Infection -Unknown Review of Systems - Review Of Systems Constitutional: Reports: No symptoms Eyes: Reports: No symptoms Ears, Nose, Mouth, Throat: Reports: No symptoms Respiratory: Reports: No symptoms Cardiac: Reports: No symptoms GI: Reports: Diarrhea, Nausea, Vomiting : Reports: No symptoms Musculoskeletal: Reports: No symptoms Skin: Reports: No symptoms Neurological: Reports: No symptoms Endocrine: Reports: No symptoms Hematologic/Lymphatic: Reports: No symptoms All Other Systems: Reviewed and Negative Past Medical History - Past Medical History Previously Healthy: No Endocrine: Reports: DM 2 Cardiovascular: Reports: None Respiratory: Reports: None Hematological: Reports: None Gastrointestinal: Reports: GERD Genitourinary: Reports: None Neuro/Psych: Reports: None Musculoskeletal: Reports: Other (LEFT SHOULDER PAIN WITH MOTION) 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 ) - Surgical History General Surgical History: Reports: Appendectomy - Family History Family History: Reports: None - Social History Smoking Status: Former smoker Hx Substance Use: Yes (OCCASIONAL MARIJUANA) Alcohol Screening: Occasionally - Immunizations Tetanus Shot up to Date: Yes Physical Exam - Physical Exam Appearance: Well-appearing Ill-appearing: None Pain Distress: Mild Eyes: WILLIAM, EOMI, Conjunctiva clear Neck: Supple Respiratory: Airway patent, Breath sounds clear, Breath sounds equal, Respirations nonlabored Cardiovascular: Tachycardia GI/: Soft, Nontender, No masses, Bowel sounds normal, No Organomegaly Musculoskeletal: Normal strength, ROM intact, No edema, No calf tenderness Skin: Warm, Dry, Normal color Neurological: Sensation intact, Motor intact, Reflexes intact, Cranial nerves intact, Alert, Oriented Psychiatric: Anxious Critical Care Note - Critical Care Note Total Time (mins): 0 Course - Course Vital Signs: Temp Pulse Resp BP Pulse Ox 07/28/17 21:42 97.3 F L 109 H 18 115/78 98 Departure - Departure Time of Disposition: 22:20 Disposition: HOME SELF-CARE Discharge Problem: Headache, Nausea Instructions: General Headache (ED) Condition: Stable Pt referred to PMD for follow-up: Yes IPMP verified?: No Additional Instructions: Take you home medication for nausea and pain Follow up with PCP in 3 days Allergies/Adverse Reactions: Allergies codeine Allergy (Verified 07/28/17 21:48) NAUSEA/SWELLING sulfamethoxazole [From Bactrim] Allergy (Verified 07/28/17 21:48) Unknown UNKNOWN trimethoprim [From Bactrim] Allergy (Verified 07/28/17 21:48) Unknown UNKNOWN aspirin Adverse Reaction (Verified 07/28/17 21:48) states can take a baby aspirin, but a regular one makes him nauseated. levofloxacin [From Levaquin] Adverse Reaction (Verified 07/28/17 21:48) Vomiting levothyroxine Adverse Reaction (Verified 07/28/17 21:48) STATES HAD EXTREME WEIGHT LOSS FOR THE 2 DAYS HE TOOK IT . 20 POUNDS IN 2 DAYS tramadol HCl [From Ultram] Adverse Reaction (Verified 07/28/17 21:48) Vomiting Home Medications: Ambulatory Orders Lisinopril [Zestril] 10 mg PO DAILY 06/08/13 Lansoprazole [Prevacid] 30 mg PO DAILY 06/27/14 Glyburide 10 mg PO DAILY 09/26/15 Insulin Glargine,Hum.rec.anlog [Lantus Solostar] 40 unit SQ BEDTIME 09/26/15 Potassium 99 mg PO DAILY 10/15/16 Folic Acid 1 mg PO DAILY 12/22/16 Oxycodone-Acetaminophen 10-325 [Percocet 10-325] 10 mg PO Q4-6H PRN 01/19/17 Prochlorperazine Maleate [Compazine] 10 mg PO Q8H PRN 02/16/17 Rivaroxaban [Xarelto] 10 mg PO DAILY 04/18/17 Ondansetron [Zofran Odt] 4 mg PO Q8H PRN 05/19/17 Promethazine HCl [Phenergan Supp] 12.5 mg RC DIRECTED PRN 05/30/17 Cyanocobalamin (Vitamin B-12) [Vitamin B12] 5,000 mcg PO DAILY 07/20/17 Pembrolizumab [Keytruda] 100 mg IV DIRECTED 07/20/17 Dronabinol [Marinol] 5 mg PO BEDTIME 07/28/17 Disposition Discussed With: Patient
== END 2017-07-28 22:26 | disposition home or self-care (01) ==
LOC: ED 21:41
DX: R51 Headache (principal); R11.2 Nausea with vomiting, unspecified; T45.1X5A Adverse effect of antineoplastic and immunosuppressive drugs, initial encounter; C34.90 Malignant neoplasm of unspecified part of unspecified bronchus or lung; C79.31 Secondary malignant neoplasm of brain
CPT/HCPCS: 99281

== ENCOUNTER 2018-04-03 23:21 | Emergency (ER) ==
[2018-04-03 23:25] VITALS: BP 112/80; TEMP 98.5; BMI 25.2
[2018-04-03] MEDS ORDERED: DILAUDID 1 MG/ML SYRINGE IM STA (23:36)
[2018-04-03] MEDS ORDERED: PHENERGAN 25 MG/ML VIAL IM STA (23:36)
--- NOTE | 2018-04-03 23:39 | ED.PDOC ---
General ED Provider: Dr. CAMILA GUILLERMO-ER Chief Complaint: Back Pain Stated Complaint: my back hurts and i have an appt with dr cortez coming up soon Time Seen by Physician: 23:37 Mode of Arrival: Wheelchair Information Source: Patient Exam Limitations: No limitations Primary Care Provider: JACK POSADA Nursing and Triage Documentation Reviewed and Agree: Yes Does patient meet sepsis criteria?: No System Inflammatory Response Syndrome: Not Applicable Sepsis Protocol: For patient's 13 years and over: Temp is 96.8 and below OR 101 and greater Pulse >90 BPM Resp >20/minute Acutely Altered Mental Status Are patient's symptoms suggestive of a new infection, such as: -Pneumonia -Skin, Soft Tissue -Endocarditis -UTI -Bone, Joint Infection -Implantable Device -Acute Abdominal Infection -Wound Infection -Meningitis -Blood Stream Catheter Infection -Unknown Musculoskeletal Complaint Exam - Back Pain Complaint/Exam Mechanism of Injury: Reports: No known trauma Onset/Duration: 2 weeks Symptoms Are: Still present Timing: Constant Initial Severity: Mild Current Severity: Moderate Location: Reports: Discrete Character: Reports: Dull, Aching, Spasmodic, Stiffness Aggravating: Reports: Movements, Lifting, Bending, Walking Associated Signs and Symptoms: Denies: Swelling, Redness, Bruising, Fever, Weakness, Numbness, Tingling, Abdominal pain, Flank pain, Bladder incontinence, Bowel incontinence, Weight loss, Pain with weight bearing Paraspinal Muscle Tenderness: Yes Paraspinal Muscle Spasm: No Scoliosis: No Lordosis: No Kyphosis: No SLR Test: Right Negative, Left Negative Hip Motion Testing Pain: Right Negative, Left Negative Focal Weakness: Present: None Focal Sensory Loss: Present: None Gait: Present: Abnormal Differential Diagnoses: Arthritis, Herniated Disk, Strain, Sprain Review of Systems - Review Of Systems Constitutional: Reports: No symptoms Eyes: Reports: No symptoms Ears, Nose, Mouth, Throat: Reports: No symptoms Respiratory: Reports: No symptoms Cardiac: Reports: No symptoms GI: Reports: No symptoms : Reports: No symptoms Musculoskeletal: Reports: Back pain Skin: Reports: No symptoms Neurological: Reports: No symptoms Endocrine: Reports: No symptoms Hematologic/Lymphatic: Reports: No symptoms All Other Systems: Reviewed and Negative Past Medical History - Past Medical History Previously Healthy: No Endocrine: Reports: DM 2 Cardiovascular: Reports: None Respiratory: Reports: None Hematological: Reports: None Gastrointestinal: Reports: GERD Genitourinary: Reports: None Neuro/Psych: Reports: None Musculoskeletal: Reports: Other (LEFT SHOULDER PAIN WITH MOTION) 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 ) - Surgical History General Surgical History: Reports: Appendectomy - Family History Family History: Reports: None - Social History Smoking Status: Former smoker Hx Substance Use: Yes (OCCASIONAL MARIJUANA) Alcohol Screening: Occasionally Physical Exam - Physical Exam Appearance: Well-appearing, No pain distress, Well-nourished Pain Distress: Moderate Eyes: WILLIAM ENT: Ears normal Neck: Supple Respiratory: Airway patent, Breath sounds clear, Breath sounds equal, Respirations nonlabored Cardiovascular: RRR, Pulses normal, No rub, No murmur GI/: Soft Musculoskeletal: Normal strength, No edema, No calf tenderness, Limited ROM Skin: Warm, Dry, Normal color Neurological: Sensation intact, Motor intact, Reflexes intact, Cranial nerves intact, Alert, Oriented Psychiatric: Affect appropriate, Mood appropriate Critical Care Note - Critical Care Note Total Time (mins): 0 Course - Course Orders, Labs, Meds: Orders Category Date Time Status Hydromorphone HCl [Dilaudid 1 mg/ml Syringe] MEDS 04/03/18 23:36 Discontinued 2 mg IM ONCE STA Promethazine HCl [Phenergan 25 mg/ml Vial] MEDS 04/03/18 23:36 Discontinued 25 mg IM ONCE STA Medications Discontinued Medications Generic Name Dose Route Start Last Admin Trade Name Freq PRN Reason Stop Dose Admin Hydromorphone HCl 2 mg 04/03/18 23:36 04/03/18 23:56 Dilaudid 1 Mg/Ml Syringe IM 04/03/18 23:37 2 mg ONCE STA Administration Promethazine HCl 25 mg 04/03/18 23:36 04/03/18 23:58 Phenergan 25 Mg/Ml Vial IM 04/03/18 23:37 25 mg ONCE STA Administration Vital Signs: Temp Pulse Resp BP Pulse Ox 04/03/18 23:21 98.5 F 124 H 14 112/80 98 Departure - Departure Time of Disposition: 23:39 Disposition: HOME SELF-CARE Discharge Problem: Low back pain Qualifiers: Chronicity: acute Back pain laterality: midline Sciatica presence: with sciatica Sciatica laterality: bilateral sciatica Qualified Code(s): M54.42 - Lumbago with sciatica, left side Instructions: Acute Low Back Pain (ED) Condition: Good Pt referred to PMD for follow-up: Yes IPMP verified?: No Additional Instructions: f/u dina cortez Allergies/Adverse Reactions: Allergies codeine Allergy (Verified 07/28/17 21:48) NAUSEA/SWELLING sulfamethoxazole [From Bactrim] Allergy (Verified 07/28/17 21:48) Unknown UNKNOWN trimethoprim [From Bactrim] Allergy (Verified 07/28/17 21:48) Unknown UNKNOWN aspirin Adverse Reaction (Verified 07/28/17 21:48) states can take a baby aspirin, but a regular one makes him nauseated. levofloxacin [From Levaquin] Adverse Reaction (Verified 07/28/17 21:48) Vomiting levothyroxine Adverse Reaction (Verified 07/28/17 21:48) STATES HAD EXTREME WEIGHT LOSS FOR THE 2 DAYS HE TOOK IT . 20 POUNDS IN 2 DAYS tramadol HCl [From Ultram] Adverse Reaction (Verified 07/28/17 21:48) Vomiting Home Medications: Ambulatory Orders Lisinopril [Zestril] 10 mg PO DAILY 06/08/13 Lansoprazole [Prevacid] 30 mg PO DAILY 06/27/14 Glyburide 10 mg PO DAILY 09/26/15 Insulin Glargine,Hum.rec.anlog [Lantus Solostar] 40 unit SQ BEDTIME 09/26/15 Potassium 99 mg PO DAILY 10/15/16 Folic Acid 1 mg PO DAILY 12/22/16 Prochlorperazine Maleate [Compazine] 10 mg PO Q8H PRN 02/16/17 Rivaroxaban [Xarelto] 10 mg PO DAILY 04/18/17 Ondansetron [Zofran Odt] 4 mg PO Q8H PRN 05/19/17 Promethazine HCl [Phenergan Supp] 12.5 mg RC DIRECTED PRN 05/30/17 Cyanocobalamin (Vitamin B-12) [Vitamin B12] 5,000 mcg PO DAILY 07/20/17 Pembrolizumab [Keytruda] 100 mg IV DIRECTED 07/20/17 Dronabinol [Marinol] 5 mg PO BEDTIME 07/28/17 Insulin Glargine,Hum.rec.anlog [Lantus] 50 units SQ DAILY 04/03/18 Disposition Discussed With: Patient, Family
== END 2018-04-04 00:44 | disposition home or self-care (01) ==
LOC: ED 23:21
DX: M54.9 Dorsalgia, unspecified (principal); M54.42 Lumbago with sciatica, left side
CPT/HCPCS: 96372; 99282